=== PATIENT | female | born 1955 | race Hispanic/Latino ===

== ENCOUNTER 2016-03-26 22:18 | Emergency (ER) | payer OTHER ==
[~2016-03-26] VITALS: Ht 157.5 cm; Wt 67.6 kg
[~2016-03-26 22:18] MED LIST: ABILIFY 10 MG10 MG PO; ALBUTEROL 3 ML3 ML INH; AMOXIL 875 MG875 MG PO; BACTRIM DS TAB1 EACH PO; BENADRYL25 MG PO; CLONAZEPAM2 MG PO; IBUPROFEN600 MG PO; KLONOPIN 1MG TAB1 MG PO; MEDROL4 M2 PO; Nebulizer machine; PEPCID20 M1 PO; PREDNISONE 10MG10 M1 PO; PREDNISONE 20MG20 MG PO; PREDNISONE10 MG PO; PRISTIQ 50MG50 MG PO; PROVENTIL0.09 MG/A1 INH; ROBITUSSIN W/CO10 ML PO; SYMBICORT 80/4.1 PUF INH; TESSALON PERLE100 MG PO; TRAMADOL HCL50 M1 PO; TYLENOL #31 TAB PO; ZITHROMAX Z-PA250 M1 PO; ZOFRAN4 M1 PO
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
[2016-03-26] MEDS ORDERED: SYMBICORT 80-10.2 GM INH (23:47)
[2016-03-26] MEDS ORDERED: ALBUTEROL2.5 MG/3 M INH/SOL (23:47)
[2016-03-27 01:00] LABS: ABSOLUTE BASOPHIL COUNT 0 /CUMM (0.0-0.2); ABSOLUTE EOSINOPHIL COUNT 0.5 /CUMM (0.0-0.7); ABSOLUTE GRANULOCYTE CT 5.6 /CUMM (1.4-6.5); ABSOLUTE LYMPH COUNT 2.3 /CUMM (1.2-3.4); ABSOLUTE MONOCYTE COUNT 0.9 /CUMM (0.10-0.60); BASOPHIL % 0.5 % (0.0-2.0); EOSINOPHIL % 5.1 % (0-5); GRANULOCYTE % 60.4 % (42.2-75.2); HEMATOCRIT 42.3 % (37-47); MEAN CORPUSCULAR HGB CONC 34.1 G/DL (33.0-37.0); MEAN PLATELET VOLUME 8.9 FL (7.4-10.4); PLATELET COUNT 376 /CUMM (130-400); RBC DISTRIBUTION WIDTH 13.5 % (11.5-14.5); WHITE BLOOD CELL COUNT 9.3 /CUMM (4.8-10.8)
--- NOTE | 2016-03-27 01:04 | RADIOLOGY REPORT ---
EXAMINATION: XR PORTABLE CHEST CLINICAL INFORMATION: Pleuritic chest pain. COMPARISON: Chest x-ray 08/05/2015 TECHNIQUE: Portable view of the chest was obtained. FINDINGS: Low lung volumes. Mild basilar atelectasis. No focal consolidation, pleural effusion, or pneumothorax. Cardiac silhouette size is normal. Aorta is again noted to be tortuous. No acute osseous findings. IMPRESSION: Low lung volumes and mild bibasilar atelectasis.
--- NOTE | 2016-03-27 01:07 | RADIOLOGY REPORT ---
EXAMINATION: 3 views of the left shoulder CLINICAL INFORMATION: Tenderness over the left glenohumeral joint. COMPARISON: Left shoulder radiographs 05/19/2011 FINDINGS: No acute fractures. The bony articulations are maintained. The scapular Y view is limited secondary to patient positioning with the glenoid angulated anteriorly towards the humerus. No anteromedial displacement of the humeral head in relation to the glenoid to suggest dislocation on the remaining views. Appearance is stable in comparison to the prior shoulder radiographs. IMPRESSION: No acute osseous findings. Limited scapular Y view secondary to patient positioning.
[2016-03-27] MEDS ORDERED: KETOROLAC TROME10 M1 PO (05:51)
[2016-03-27 06:33] VITALS: BP 11/60
== END 2016-03-27 06:37 ==
LOC: ERH 22:18
PROVIDERS: Ophthalmology
DX: R07.89 Other chest pain (principal); I24.9 Acute ischemic heart disease, unspecified; M94.0 Chondrocostal junction syndrome [Tietze]
CPT/HCPCS: 73030-LT; 82436; 93005; 93010; J1885

== ENCOUNTER 2016-03-31 22:19 | Emergency (ER) | payer OTHER ==
[~2016-03-31] VITALS: Ht 165.1 cm; Wt 67.6 kg
[~2016-03-31 22:19] MED LIST changes: +ALBUTEROL2.5 MG/3 M INH/SOL; +KETOROLAC TROME10 M1 PO; +SYMBICORT 80-10.2 GM INH
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
[2016-03-31 22:30] VITALS: BP 112/65
[2016-03-31 22:55] LABS: ABSOLUTE BASOPHIL COUNT 0 /CUMM (0.0-0.2); ABSOLUTE EOSINOPHIL COUNT 0.5 /CUMM (0.0-0.7); ABSOLUTE GRANULOCYTE CT 5.6 /CUMM (1.4-6.5); ABSOLUTE LYMPH COUNT 2.6 /CUMM (1.2-3.4); ABSOLUTE MONOCYTE COUNT 0.9 /CUMM (0.10-0.60); BASOPHIL % 0.4 % (0.0-2.0); EOSINOPHIL % 4.9 % (0-5); GRANULOCYTE % 58.7 % (42.2-75.2); HEMATOCRIT 42.5 % (37-47); MEAN CORPUSCULAR HGB 29.6 PG (27.0-31.0); MEAN CORPUSCULAR HGB CONC 33.5 G/DL (33.0-37.0); MEAN CORPUSCULAR VOLUME 88.5 FL (81.0-99.0); MEAN PLATELET VOLUME 8.4 FL (7.4-10.4); PLATELET COUNT 377 /CUMM (130-400); RBC DISTRIBUTION WIDTH 13.7 % (11.5-14.5); WHITE BLOOD CELL COUNT 9.6 /CUMM (4.8-10.8)
--- NOTE | 2016-03-31 23:16 | RADIOLOGY REPORT ---
EXAMINATION: XR PORTABLE CHEST CLINICAL INFORMATION: Dyspnea. COMPARISON: Portable chest x-ray 03/27/2016. TECHNIQUE: Portable AP view of the chest was obtained. FINDINGS: The lungs are hypoinflated. There is minimal dependent bibasilar atelectasis. No focal airspace consolidation. No pleural effusions or pneumothoraces are identified. Cardiomediastinal contours are within normal limits. Soft tissues are unremarkable. No acute osseous abnormality is identified. IMPRESSION: Pulmonary hypoinflation and minimal dependent bibasilar atelectasis. No focal airspace consolidation to suggest infection.
[2016-03-31] MEDS ORDERED: PREDNISOLO15 MG/5 M4 PO (23:37)
[2016-03-31] MEDS ORDERED: VENTOLIN HFA18 GM INH (23:37)
== END 2016-03-31 23:41 ==
LOC: ERH 22:19
PROVIDERS: Pediatrics
DX: J98.01 Acute bronchospasm (principal); J70.5 Respiratory conditions due to smoke inhalation
CPT/HCPCS: 1263; 93005; 93010

== ENCOUNTER 2016-05-14 10:18 | Inpatient (IN) | payer OTHER ==
[~2016-05-14] VITALS: Ht 162.6 cm; Wt 67.6 kg
[~2016-05-14 10:18] MED LIST changes: +PREDNISOLO15 MG/5 M4 PO; +VENTOLIN HFA18 GM INH
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
--- NOTE | 2016-05-14 10:29 | NUR ---
ARIAN TO BEDSIDE TO EVAL
--- NOTE | 2016-05-14 10:46 | NUR ---
RT CALLED FOR NEB TX
--- NOTE | 2016-05-14 10:57 | NUR ---
RT TO BEDSIDE FOR TX, MEDICATED WITH PREDNISONE
--- NOTE | 2016-05-14 11:08 | NUR ---
LABS DRAW AND SENT, [facility] TX IN PROGRESS, PT ALSO REPORTING SMALL RED AREA OF PAIN AND SWELLING TO HER R BUTTOCK, APPEARS TO BE ABSCESS LIKE - WILL NOTIFY PA
[2016-05-14 11:13] LABS: ABSOLUTE BASOPHIL COUNT 0 /CUMM (0.0-0.2); ABSOLUTE EOSINOPHIL COUNT 0.5 /CUMM (0.0-0.7); ABSOLUTE GRANULOCYTE CT 7.4 /CUMM (1.4-6.5); ABSOLUTE LYMPH COUNT 1.1 /CUMM (1.2-3.4); ABSOLUTE MONOCYTE COUNT 0.9 /CUMM (0.10-0.60); BASOPHIL % 0.4 % (0.0-2.0); EOSINOPHIL % 5.5 % (0-5); GRANULOCYTE % 74.6 % (42.2-75.2); HEMATOCRIT 41.1 % (37-47); MEAN CORPUSCULAR HGB 30.3 PG (27.0-31.0); MEAN CORPUSCULAR HGB CONC 34.6 G/DL (33.0-37.0); MEAN CORPUSCULAR VOLUME 87.8 FL (81.0-99.0); MEAN PLATELET VOLUME 8.5 FL (7.4-10.4); PLATELET COUNT 345 /CUMM (130-400); RBC DISTRIBUTION WIDTH 12.9 % (11.5-14.5); RED BLOOD CELL CT 4.68 /CUMM (4.20-5.40)
--- NOTE | 2016-05-14 11:14 | RADIOLOGY REPORT ---
EXAMINATION: CHEST 1 VIEW CLINICAL INFORMATION: Shortness of breath, chest pain. COMPARISON: 03/31/2016. TECHNIQUE: An AP view of the chest is provided. FINDINGS: The cardiac silhouette is not enlarged. The mediastinal and hilar contours are unremarkable. There are neither pleural effusions nor pneumothoraces. There are no consolidations. The osseous structures are unremarkable. IMPRESSION: No evidence for acute disease.
--- NOTE | 2016-05-14 12:10 | NUR ---
PT CONTINUES TO WHEEZE, RT AT BEDSIDE FOR REPEAT LAB TX
--- NOTE | 2016-05-14 14:25 | NUR ---
PT ADMITTED TO ROOM 179-1
--- NOTE | 2016-05-14 14:47 | NUR ---
[facility] CALLED FOR TRANSPORT
[2016-05-14 16:04] VITALS: BP 100/60
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
--- NOTE | 2016-05-14 17:51 | Admission Certification ---
Admission Certification Certification Statement - As attending physician, I certify that at the time of - admission, based on clinical presentation, severity of - symptoms, need for further diagnostic testing and - therapeutic interventions, and risk of adverse outcomes - without in-hospital treatment, in my clinical assessment, - this patient requires an acute hospital stay for a minimum - of two nights or longer. I have also considered psychsocial - factors such as support system, advanced age, financial - issues, cognitive issues, and failed out-patient treatments, - past re-admission history, safety of patient, and lack of - compliance as applicable. Specific rationale supporting this admission is: The patient presents with significant dyspnea and cough- COPD/asthma exacerbation. Needs IV medrol, aerosol, close respiratory monitoring.
[2016-05-14 23:51] VITALS: BP 100/60
--- NOTE | 2016-05-15 05:35 | PN- Housestaff ---
GABRIELLE BHATIA 05/15/16 0534: Subjective Follow-up For: -AECOPD Subjective: Patient was comfortable this morning. Did not have any complaints. Vitals remained stable overnight. Remained afebrile. No shortness of breath, chest pain or palpitations. Review of Systems Constitutional: Reports: see HPI. Objective Last 24 Hrs of Vital Signs/I&O Vital Signs Date Time Temp Pulse Resp B/P Pulse O2 O2 Flow FiO2 Ox Delivery Rate 05/15 0000 Room Air 05/14 2351 98.1 100 18 100/60 93 Room Air 05/14 2254 Room Air Room Air 05/14 1604 97.8 100 20 100/60 94 Room Air 05/14 1416 98.6 102 15 102/74 100 Room Air 05/14 1210 95 05/14 1149 98.0 86 18 90/57 98 05/14 1100 97 05/14 1026 99 Room Air 05/14 1026 98.3 89 16 100/55 100 Room Air Intake & Output 05/15 0800 05/15 0000 05/14 1600 Intake Total 950 25 Output Total Balance 950 25 Intake, IV 600 Intake, Oral 350 25 Number 0 Bowel Movements Patient 149 lb Weight Physical Exam General Appearance: No Acute Distress Other Physical Findings: General Exam: AAOx3, No acute distress, Skin: No rashes, no breakdown HEENT: PERRLA, EOMI Neck: Supple, No JVD No cervical lymphadenopathy CVS: Reg Rate, Normal S1,S2, No MGR Resp: Decreased air entry bilaterally, rhonchi bilaterally. Abdomen: Soft, No tenderness, Normal Bowel Sounds Neuro: Normal Speech, Strength 5/5 b/l x 4 extremities, Sensation intact, CN III -XII NL, Reflexes 2+ Extremities: No cyanosis, pedal edema Current Medications: Current Medications Sig/Hortencia Start time Last Medication Dose Route Stop Time Status Admin Albuterol Sulfate 3 ML EVERY 4 HRS/AWAKE 05/15 1999 AC 05/14 INH 1928 Albuterol Sulfate 3 ML ONCE ONE 05/14 1215 DC 05/14 INH 05/14 1216 1209 Albuterol Sulfate 3 ML ONCE ONE 05/14 1215 DC 05/14 INH 05/14 1216 1209 Albuterol Sulfate 3 ML ONCE ONE 05/14 1215 DC 05/14 INH 05/14 1216 1209 Albuterol Sulfate 3 ML ONCE ONE 05/14 1030 DC 05/14 INH 05/14 1031 1059 Budesonide/ 2 PUF BID 05/14 2200 AC 05/14 Formoterol Fumarate INH 215 Clonazepam 1 MG BID 05/15 1000 AC PO 05/22 0959 Clonazepam 2 MG AT BEDTIME 05/14 2200 DC 05/14 PO 05/21 2159 2153 Enoxaparin Sodium 40 MG 1800 05/14 1800 AC 05/14 SC 2152 Ipratropium [place] 2.5 ML EVERY 4 HRS/AWAKE 05/14 2000 AC 05/14 INH 1928 Ipratropium [place] 2.5 ML ONCE ONE 05/14 1030 DC 05/14 INH 05/14 1031 1059 Magnesium Sulfate 1 GM Q2H 05/14 1345 DC 05/14 Dextrose/Water 100 ML IV 05/14 1744 1654 Methylprednisolone 40 MG Q8 05/14 2200 AC 05/14 IV 2153 Methylprednisolone 40 MG ONCE ONE 05/14 1345 DC 05/14 IV 05/14 1346 1442 Prednisone 0 .STK-MED ONE 05/14 1050 DC PO Prednisone 60 MG ONCE ONE 05/14 1030 DC 05/14 PO 05/14 1031 1057 Sodium Chloride 1,000 ML ONCE ONE 05/14 1430 DC 05/14 IV 05/14 2109 1426 Last 24 Hrs of Lab/Tereso Results Last 24 Hrs of Labs/Mics: Laboratory Tests 05/14/16 1104: Anion Gap 9, Estimated GFR > 60, BUN/Creatinine Ratio 20.0, Glucose 104 H, Calcium 9.8, Total Bilirubin 0.6, AST 20, ALT 18, Alkaline Phosphatase 137 H, Troponin I < 0.01, Total Protein 7.2, Albumin 4.3, Globulin 2.9, Albumin/ Globulin Ratio 1.5, CBC w Diff NO MAN DIFF REQ, RBC 4.68, MCV 87.8, MCH 30.3, RDW 12.9, MPV 8.5, Gran % 74.6, Lymphocytes % 10.8 L, Monocytes % 8.7, Eosinophils % 5.5 H, Basophils % 0.4, Absolute Granulocytes 7.4 H, Absolute Lymphocytes 1.1 L, Absolute Monocytes 0.9 H, Absolute Eosinophils 0.5, Absolute Basophils 0, PUBS MCHC 34.6 Assessment/Plan Assessment: Ms. Duff is a 61-year-old woman with a history of COPD (not on any home oxygen), current smoker, asthma who is being evaluated for cough, wheezing and chest tightness 3 days. Reports medication noncompliance. At the time of admission, vitals-temperature 98.3, pulse rate 89, respiration 16 , blood pressure 100/55, pulse ox 100 on room air. Lab findings indicated WBC 10.0. Hemoglobin 14.2, platelets 345, eosinophils 5.5% normal electrolyte- sodium 141, potassium 3.8, bicarbonate 28, normal renal function BUN 14, serum creatinine 0.7. Radiological findings-chest x-ray revealed no evidence of any acute disease. Differential diagnosis: #1 acute exacerbation of COPD #2 asthma Below is the problem list and plan: #1 shortness of breath-likely from acute exacerbation of COPD. Patient has been started on IV Solu-Medrol. Currently 40 mg every 8. Patient still symptomatic, and has clinical signs suggestive of severe airway inflammation, plan to continue 40 mg every 8. May change in the a.m. to twice a day dose. No azithromycin was added. Lower respiratory cultures have not been obtained. Patient has been started on budesonide/formoterol, ipratropium and albuterol. Discharge planning in the next 24 hours. #2 anxiety- patient to be continued on Klonopin at her home dose. Psychiatry evaluation. #3 DVT prophylaxis-Lovenox #4 pain pathway-Tylenol when necessary Problem List: 1. COPD exacerbation 2. Bronchospasm Pain Ratin Pain Location: Back Pain Goal: Pain 4 or less Pain Plan: Tylenol when necessary Tomorrow's Labs & Rationales: No labs necessary. Currently stable. DVT/Prophylaxis: pharmacological (Lovenox) Discharge Plan Discharge Disposition: home Stable for Discharge? No Anticipated Discharge (Day): tomorrow If Discharged Today/In 24 Hrs: enter [facility] discharge ord CRISTHIAN SUE MD 05/15/16 1127: Attending MD Review Statement Attending Statement Attending MD Statement: examined this patient, discuss w/resident/PA/BALL RACKER, agreed w/resident/PA/BALL RACKER, reviewed EMR data (avail) Attending Assessment/Plan: Will continue Solumedrol and nebulizer treatments for COPD exacerbation. Requiring 2L NC to maintain saturation, titrate down as tolerated. Continue home medications. Would recommend psychiatry consult as patient is very tearful and depressed. DVT PPx. Anticipated discharge tomorrow.
[2016-05-15 08:30] VITALS: BP 100/64; BP 152/80
--- NOTE | 2016-05-15 11:23 | PN- Student ---
Subjective Subjective: Following up for: COPD/Asthma Exacerbation I visited Ms. Duff this morning and she was sitting on her bed crying. The patient seems to be emotionally distressed for different reasons other than her current health status. She stated that "she feels alone and that none of her children wants to take care of her". While evaluating her she cried three times and in the meantime she was running short of breath. The patient admitted that she didn't had a good night sleep and estimates that only got 3 hours of sleep. Compared to yesterday she feels somewhat better but still isn't in optimal conditions. The patient confirmed the history that was taken yesterday during her admission and mentioned that she was not able to take her medications since she didn't had them available. The patient is bilingual (Bel[place]ian & Urdu), and most of the conversation was done in estonian. At the end she seemed more calmed and was willing to start on nasal canula to maintain her saturation in an appropriate level. The patient is in mild respiratory distress and emotional distress as well, which increases her anxiety level and henceforth her respiratory drive as well. She denies any current chest pain, dizziness, syncope, nausea, vomiting, constipation or diarrhea. Objective Objective: Current Medications Sig/Hortencia Start time Last Medication Dose Route Stop Time Status Admin Albuterol Sulfate 3 ML EVERY 4 HRS/AWAKE 05/15 1999 AC 05/15 INH 0819 Albuterol Sulfate 3 ML ONCE ONE 05/14 1215 DC 05/14 INH 05/14 1216 1209 Albuterol Sulfate 3 ML ONCE ONE 05/14 1215 DC 05/14 INH 05/14 1216 1209 Albuterol Sulfate 3 ML ONCE ONE 05/14 1215 DC 05/14 INH 05/14 1216 1209 Budesonide/ 2 PUF BID 05/14 220 AC 05/15 Formoterol Fumarate INH 1048 Clonazepam 1 MG BID 05/15 1000 AC 05/15 PO 05/22 0959 1048 Clonazepam 2 MG AT BEDTIME 05/14 2199 DC 05/14 PO 05/21 215 2153 Enoxaparin Sodium 40 MG 1800 05/14 1800 AC 05/14 SC 2152 Guaifenesin 600 MG Q12 05/15 1000 AC 05/15 PO 1048 Ipratropium [place] 2.5 ML EVERY 4 HRS/AWAKE 05/15 1999 AC 05/15 INH 0819 Magnesium Sulfate 1 GM Q2H 05/14 1345 DC 05/14 Dextrose/Water 100 ML IV 05/14 1744 1654 Methylprednisolone 40 MG Q8 05/14 2200 AC 05/15 IV 0552 Methylprednisolone 40 MG ONCE ONE 05/14 1345 DC 05/14 IV 05/14 1346 1442 Ondansetron HCl 4 MG ONCE ONE 05/15 0630 DC 05/15 IV 05/15 0631 0642 Sodium Chloride 1,000 ML ONCE ONE 05/14 1430 DC 05/14 IV 05/14 2109 1426 Vital Signs Date Time Temp Pulse Resp B/P Pulse O2 O2 Flow FiO2 Ox Delivery Rate 05/15 0842 95 Nasal 2.0L Cannula 05/15 0830 98.0 90 20 100/64 97 Room Air 05/15 0800 Nasal 2.0L Cannula 05/15 0000 Room Air 05/14 2351 98.1 100 18 100/60 93 Room Air 05/14 2254 Room Air Room Air 05/14 1604 97.8 100 20 100/60 94 Room Air 05/14 1416 98.6 102 15 102/74 100 Room Air 05/14 1210 95 05/14 1149 98.0 86 18 90/57 98 Intake & Output 05/15 1600 05/15 0800 05/15 0000 Intake Total 500 950 Output Total Balance 500 950 Intake, IV 400 600 Intake, Oral 100 350 Number 0 0 Bowel Movements Physical Examination: General: 61 y/o Female which is in mild respiratory distress and emotionally distressed as well. The patient is alert and oriented X3. Mouth: No purse lips on inspection Lungs: Bilateral diffuse ronchi; Minimal wheezes were appreciated CV: S1, S2 sounds were heard; no murmurs were heard. Lower Extremities: No signs of pedal edema or changes in temperature. Neurological: Normal Speech. Results Results: Laboratory Tests 05/14/16 1104: Anion Gap 9, Estimated GFR > 60, BUN/Creatinine Ratio 20.0, Glucose 104 H, Calcium 9.8, Total Bilirubin 0.6, AST 20, ALT 18, Alkaline Phosphatase 137 H, Troponin I < 0.01, Total Protein 7.2, Albumin 4.3, Globulin 2.9, Albumin/ Globulin Ratio 1.5, CBC w Diff NO MAN DIFF REQ, RBC 4.68, MCV 87.8, MCH 30.3, RDW 12.9, MPV 8.5, Gran % 74.6, Lymphocytes % 10.8 L, Monocytes % 8.7, Eosinophils % 5.5 H, Basophils % 0.4, Absolute Granulocytes 7.4 H, Absolute Lymphocytes 1.1 L, Absolute Monocytes 0.9 H, Absolute Eosinophils 0.5, Absolute Basophils 0, PUBS MCHC 34.6 Assessment/Plan Assessment: Ms. Duff is a 61 y/o [place] with a past medical history of COPD/Asthma, Seizures & Anxiety. The patient presented to the [facility] due to shortness of breath and chest tightness and was admitted to the General Medicine floor but currently is being held in the Telemetry floor. Upon admission her vital signs were 98.3 f, 89 BPM, 16 BrPM, 100/55 and was saturating 100% at room air. Chemistries & hematology laboratories were normal including Troponin levels (<0.01). Upon examining the patient she seemed to be distressed emotionally and respiratory; on auscultation ronchi was heard diffusely and minimal wheezing was also appreciated. CXR findings were unremarkable and didn't showed any signs of emphysematous, fibrotic/interstitial changes. DDx: #1) Asthma Exacerbation #2) COPD/Emphysema Exacerbation #3) Pulmonary Embolism #4) Demand Ischemia Based on the constellation of complaints, signs and symtpoms there is a possibility that the patient is having an Asthma exacerbation. Given the fact that the patient has a PMHx of Asthma, wasn't using her medications and potentially was exposed to cold temperatures, it can be possible that she underwent a degree of broncho-constriction and inflammation which lead her to be short of breath and "tight of chest", hence supporting this diagnosis. Since the CXR didn't show hyperinflation, the patient was having non-productive cough (R/O emphysema) and also had normal oxygen saturation levels (PE) it's unlikely that the other diagnoses are possible. Plan: Problem List & Plan: 1) Asthma Exacerbation & Shortness of Breath - Solumedrol IV 40mg q8 (to control degree of inflammation) - Albuterol INH 3.0mL PRN (to control flairs of shortness of breath) - Ipratropium INH 1.5mL PRN - 1.5 L/min Nasal Canula - Caution with anxiolytics due to respiratory drive suppresion - Pulmonology Consult 2) Anxiety - Psychiatry consult to assess anxiety episodes - Clonazepam PO 1mg BID 3) Normal Diet 4) DVT PPx - Lovenox SQ
[2016-05-15 15:22] VITALS: BP 102/64
[2016-05-15 23:33] VITALS: BP 104/68
--- NOTE | 2016-05-16 06:49 | PN- Student ---
Subjective Subjective: Following up for: COPD/Asthma Exacerbation I visited Ms. Duff this morning and she was sleeping in her bed comfortably. She was drowsy but stated that she slept well after the administration of "some sleeping pill" (Clonazepam). The patient seemed more relieved in terms of her emotional status and confirmed it when asked about it. During the day I'll reach again to corroborate the response. In terms of her respiratory status she feels better but not completely relieved and she complained of soar throat due to her non-productive cough. The patient is not in any type of distress. She denies any current chest pain, dizziness, syncope, nausea, vomiting, constipation or diarrhea. Objective Objective: Current Medications Sig/Hortencia Start time Last Medication Dose Route Stop Time Status Admin Acetaminophen 650 MG Q6P PRN 05/15 1745 AC PO Albuterol Sulfate 3 ML EVERY 4 HRS/AWAKE 05/15 1999 AC 05/15 INH 2024 Benzocaine/Menthol 1 REKHA Q2P PRN 05/15 183 AC 05/15 PO 2112 Budesonide/ 2 PUF BID 05/14 2199 AC 05/15 Formoterol Fumarate INH 2113 Clonazepam 1 MG .STK-MED ONE 05/15 1045 DC PO 05/15 1046 Clonazepam 1 MG BID 05/15 1000 AC 05/15 PO 05/22 0959 2114 Enoxaparin Sodium 40 MG 1800 05/14 1800 AC 05/15 SC 1708 Guaifenesin 10 ML .STK-MED ONE 05/15 1942 DC PO 05/15 1943 Guaifenesin 600 MG Q6-PRN PRN 05/15 1830 CAN PO Guaifenesin 600 MG Q12 05/15 1000 DC 05/15 PO 1048 Guaifenesin/Codeine 10 ML .STK-MED ONE 05/15 1943 DC Phosphate PO 05/15 1944 Guaifenesin/ 10 ML Q4P PRN 05/15 1830 AC 05/16 Dextromethorphan PO 0557 Ipratropium [place] 2.5 ML EVERY 4 HRS/AWAKE 05/15 1999 AC 05/15 INH 2023 Methylprednisolone 40 MG Q8 05/14 2199 AC 05/16 IV 0553 Ondansetron HCl 4 MG .STK-MED ONE 05/15 1658 DC IV 05/15 1659 Vital Signs Date Time Temp Pulse Resp B/P Pulse O2 O2 Flow FiO2 Ox Delivery Rate 05/16 0000 Nasal 2.0L Cannula 05/15 2333 98.0 90 20 104/68 97 Nasal Cannula 05/15 1630 98 Nasal 2.0L Cannula 05/15 1522 98.2 96 20 102/64 95 Nasal 2.0L Cannula 05/15 0842 95 Nasal 2.0L Cannula 05/15 0830 98.0 90 20 100/64 97 Room Air 05/15 0800 Nasal 2.0L Cannula Intake & Output 05/16 0800 05/16 0000 05/15 1600 Intake Total 240 720 716 Output Total Balance 240 720 716 Intake, IV 11 Intake, Oral 240 720 705 Physical Examination: General: 61 y/o Female without any signs of distress. The patient is alert and oriented X3 and today seemed to be more emotionally stable Mouth: No purse lips on inspection Lungs: Ronchi was heard in the Left Basilar area; Right Lung was clear to auscultation; Minimal wheezes were appreciated on the Left Basilar area CV: S1, S2 sounds were heard; no murmurs were heard Lower Extremities: No signs of pedal edema or changes in temperature Neurological: Normal Speech Results Results: Laboratory Tests 05/14/16 1104: Anion Gap 9, Estimated GFR > 60, BUN/Creatinine Ratio 20.0, Glucose 104 H, Calcium 9.8, Total Bilirubin 0.6, AST 20, ALT 18, Alkaline Phosphatase 137 H, Troponin I < 0.01, Total Protein 7.2, Albumin 4.3, Globulin 2.9, Albumin/ Globulin Ratio 1.5, CBC w Diff NO MAN DIFF REQ, RBC 4.68, MCV 87.8, MCH 30.3, RDW 12.9, MPV 8.5, Gran % 74.6, Lymphocytes % 10.8 L, Monocytes % 8.7, Eosinophils % 5.5 H, Basophils % 0.4, Absolute Granulocytes 7.4 H, Absolute Lymphocytes 1.1 L, Absolute Monocytes 0.9 H, Absolute Eosinophils 0.5, Absolute Basophils 0, PUBS MCHC 34.6 Assessment/Plan Assessment: Ms. Duff is a 61 y/o [place] with a past medical history of COPD/Asthma, Seizures & Anxiety. The patient presented to the [facility] due to shortness of breath and chest tightness and was admitted to the General Medicine floor but currently is being held in the Telemetry floor. Upon admission her vital signs were 98.3 f, 89 BPM, 16 BrPM, 100/55 and was saturating 100% at room air. Chemistries & hematology laboratories were normal including Troponin levels (<0.01). Upon examining the patient she seemed to be distressed emotionally and respiratory; on auscultation ronchi was heard diffusely and minimal wheezing was also appreciated. CXR findings were unremarkable and didn't showed any signs of emphysematous, fibrotic/interstitial changes. DDx: #1) Asthma Exacerbation #2) COPD/Emphysema Exacerbation #3) Pulmonary Embolism #4) Demand Ischemia Based on the constellation of complaints, signs and symtpoms there is a possibility that the patient is having an Asthma exacerbation. Given the fact that the patient has a PMHx of Asthma, wasn't using her medications and potentially was exposed to cold temperatures, it can be possible that she underwent a degree of broncho-constriction and inflammation which lead her to be short of breath and "tight of chest", hence supporting this diagnosis. Since the CXR didn't show hyperinflation, the patient was having non-productive cough (R/O emphysema) and also had normal oxygen saturation levels (PE) it's unlikely that the other diagnoses are possible. Plan: Problem List & Plan: Today the patient was feeling better when compared to yesterday. She mentioned that she walked to her bathroom with less respiratory complications than yesterday; nevertheless she doesn't feel optimal at this point. Respiratory auscultation demonstrated ronchi improvement on the R-Lung but the L-Lung still has some degree of ronchi which needs to be addressed prior to discharge. Ambulatory saturation measurement was performed and she was at 94-95% upon exertion and feeling well, although minimally lightheaded. 1) Asthma Exacerbation & Shortness of Breath - Solumedrol IV 40mg q8 (to control degree of inflammation) - Albuterol INH 3.0mL PRN (to control flairs of shortness of breath) - Ipratropium INH 1.5mL PRN - Continue 1.5 L/min Nasal Canula - Caution with anxiolytics due to respiratory drive suppresion - Monitor Pulse Ox after Respiratory Tx - Ambulatory Pulse Ox following Respiratory Tx - Goal: Oxygen Saturation of >=95% 2) Anxiety - Psychiatry consult to assess anxiety episodes - Clonazepam PO 1mg BID 3) Normal Diet 4) DVT PPx - Lovenox SQ
[2016-05-16 08:02] VITALS: BP 104/60
--- NOTE | 2016-05-16 08:26 | PN- Housestaff ---
GABRIELLE BHATIA 05/16/16 0825: Subjective Follow-up For: Acute exacerbation of COPD Complaints: no complaints Tele-Events Since Last Visit: General medicine hold Subjective: Patient was comfortable this morning. Stated that she feels improved compared to yesterday. She also has many social issues around finding a place to stay after a few weeks, which apparently makes her very anxious at this time. Appeared very tearful. Vitals were stable overnight. She was afebrile. Review of Systems Constitutional: Reports: see HPI. Objective Last 24 Hrs of Vital Signs/I&O Vital Signs Date Time Temp Pulse Resp B/P Pulse O2 O2 Flow FiO2 Ox Delivery Rate 05/16 0802 98.3 60 20 104/60 96 Nasal 2.0L Cannula 05/16 0753 98 Nasal 2.0L Cannula 05/16 0000 Nasal 2.0L Cannula 05/15 2333 98.0 90 20 104/68 97 Nasal Cannula 05/15 1630 98 Nasal 2.0L Cannula 05/15 1522 98.2 96 20 102/64 95 Nasal 2.0L Cannula 05/15 0842 95 Nasal 2.0L Cannula 05/15 0830 98.0 90 20 100/64 97 Room Air Intake & Output 05/16 1600 05/16 0800 05/16 0000 Intake Total 240 720 Output Total Balance 240 720 Intake, Oral 240 720 Physical Exam General Appearance: No Acute Distress Other Physical Findings: General Exam: AAOx3, No acute distress, Skin: No rashes, no breakdown HEENT: PERRLA, EOMI Neck: Supple, No JVD No cervical lymphadenopathy CVS: Reg Rate, Normal S1,S2, No MGR Resp: Decreased air entry bilaterally, rhonchi left greater than right. Abdomen: Soft, No tenderness, Normal Bowel Sounds Neuro: Normal Speech, Strength 5/5 b/l x 4 extremities, Sensation intact, CN III -XII NL, Reflexes 2+ Extremities: No cyanosis, pedal edema Current Medications: Current Medications Sig/Hortencia Start time Last Medication Dose Route Stop Time Status Admin Acetaminophen 650 MG Q6P PRN 05/15 1745 AC PO Albuterol Sulfate 3 ML EVERY 4 HRS/AWAKE 05/15 1999 AC 05/16 INH 0750 Benzocaine/Menthol 1 REKHA Q2P PRN 05/15 183 AC 05/15 PO 2113 Budesonide/ 2 PUF BID 05/14 2200 AC 05/15 Formoterol Fumarate INH 2114 Clonazepam 1 MG .STK-MED ONE 05/15 1045 DC PO 05/15 1046 Clonazepam 1 MG BID 05/15 1000 AC 05/15 PO 05/22 0959 2114 Enoxaparin Sodium 40 MG 1800 05/14 1800 AC 05/15 SC 1708 Guaifenesin 10 ML .STK-MED ONE 05/15 1942 DC PO 05/15 1943 Guaifenesin 600 MG Q6-PRN PRN 05/15 1830 CAN PO Guaifenesin 600 MG Q12 05/15 1000 DC 05/15 PO 1048 Guaifenesin/Codeine 10 ML .STK-MED ONE 05/15 194 DC Phosphate PO 05/15 194 Guaifenesin/ 10 ML Q4P PRN 05/15 1830 AC 05/16 Dextromethorphan PO 0557 Ipratropium [place] 2.5 ML EVERY 4 HRS/AWAKE 05/14 2000 AC 05/16 INH 0750 Methylprednisolone 40 MG BID 05/16 2199 AC IV Methylprednisolone 40 MG Q8 05/14 220 DC 05/16 IV 0553 Ondansetron HCl 4 MG .STK-MED ONE 05/15 1658 DC IV 05/15 1659 Assessment/Plan Assessment: Ms. Duff is a 61-year-old woman with a history of COPD (not on any home oxygen), current smoker, asthma who is being evaluated for cough, wheezing and chest tightness 3 days. Reports medication noncompliance. Radiological findings-chest x-ray revealed no evidence of any acute disease. Differential diagnosis: #1 acute exacerbation of COPD #2 asthma Below is the problem list and plan: #1 shortness of breath-likely from acute exacerbation of COPD. Patient still symptomatic, and has clinical signs suggestive of severe airway inflammation, plan to continue IV Solu-Medrol, but decrease the frequency to every 12 hours. No azithromycin was added. Lower respiratory cultures have not been obtained. Patient has been started on budesonide/formoterol, ipratropium and albuterol. Discharge planning in the next 24 hours. #2 anxiety- patient to be continued on Klonopin at her home dose. Psychiatry evaluation pending. #3 DVT prophylaxis-Lovenox #4 pain pathway-Tylenol when necessary Problem List: 1. COPD exacerbation Pain Ratin Pain Location: Back Pain Goal: Pain 4 or less Pain Plan: Tylenol when necessary Tomorrow's Labs & Rationales: No labs necessary. CRISTHIAN SUE MD 05/16/16 1115: Attending MD Review Statement Attending Statement Attending MD Statement: examined this patient, discuss w/resident/PA/FIN[employer]CIAL SALES ASSOCIATE, agreed w/resident/PA/FINANCIAL SALES ASSOCIATE, reviewed EMR data (avail) Attending Assessment/Plan: Will continue Solumedrol and nebulizer treatments for COPD exacerbation. Requiring 2L NC to maintain saturation, titrate down as tolerated. Taper Solumedrol to 40mg IV BID, with plan to switch to PO tomorrow. Continue home medications. Would recommend psychiatry consult as patient is very tearful and depressed. DVT PPx. Anticipated discharge tomorrow.
[2016-05-16] MEDS ORDERED: PREDNISONE10 M2 PO (08:52)
--- NOTE | 2016-05-16 08:56 | Patient Discharge Instructions ---
Discharge Instructions General Discharge Information You were seen/treated for: Acute exacerbation of COPD Watch for these problems: - chest pain, shortness of breath, fever. - abdominal pain, diarrhea Special Instructions: - Please see your PCP within one week of discharge. - Please take your medicaitons as prescribed. Acute Coronary Syndrome Inclusion Criteria At DC or during hospital stay patient has or had the following: ACS DIAGNOSIS No Discharge Core Measures Meds if any: Prescribed or Continued at Discharge Meds if any: NOT Prescribed or Continued at Discharge Congestive Heart Failure Inclusion Criteria At DC or during hospital stay patient has or had the following: CHF DIAGNOSIS No Discharge Core Measures Meds if any: Prescribed or Continued at Discharge Meds if any: NOT Prescribed or Continued at Discharge Cerebrovascular accident Inclusion Criteria At DC or during hospital stay patient has or had the following: CVA/TIA Diagnosis No Discharge Core Measures Meds if any: Prescribed or Continued at Discharge Meds if any: NOT Prescribed or Continued at Discharge Venous thromboembolism Inclusion Criteria VTE Diagnosis No VTE Type NONE VTE Confirmed by (Test) NONE Discharge Core Measures - Per Current guidelines, there needs to be overlap - treatment for the first 5 days of Warfarin therapy. - If discharged on Warfarin prior to 5 days of - overlap therapy, the patient will need to be - assessed for post discharge needs including - *Post discharge parental anticoagulation - *Warfarin and/or parental anticoagulation education - *Follow up date to check INR post discharge At least 5 days overlap therapy as Inpatient No Meds if any: Prescribed or Continued at Discharge Note: Overlap Therapy is Warfarin and Anticoagulant Meds if any: NOT Prescribed or Continued at Discharge
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
[2016-05-16 16:06] VITALS: BP 106/60; BP 182/90
[2016-05-17 00:13] VITALS: BP 100/60
--- NOTE | 2016-05-17 05:47 | PN- Housestaff ---
GABRIELLE BHATIA 05/17/16 0547: Subjective Follow-up For: - AECOPD - SOB Tele-Events Since Last Visit: gen med hold. Subjective: Pt was comfortable. She stated that she did not sleep well last night. She had increasing chills, which appeard like seizures. Vitals stable. No fever, chest pain or neurological symptoms. Pt to be follow up at [facility], for her psychiatric work up. She wishes to see Dr. Ames,as an outpatient PCP. Referral provided. Review of Systems Constitutional: Reports: see HPI. Objective Last 24 Hrs of Vital Signs/I&O Vital Signs Date Time Temp Pulse Resp B/P Pulse O2 O2 Flow FiO2 Ox Delivery Rate 05/17 0013 97.0 76 18 100/60 94 Nasal Cannula 05/17 0000 Nasal 2.0L Cannula 05/16 1645 94 Room Air 05/16 1606 97.2 79 18 106/60 96 05/16 0802 98.3 60 20 104/60 96 Nasal 2.0L Cannula 05/16 0800 96 Nasal 2.0L Cannula 05/16 0753 98 Nasal 2.0L Cannula Intake & Output 05/17 0800 05/17 0000 05/16 1600 Intake Total 240 Output Total 500 Balance -260 Intake, Oral 240 Output, Urine 500 Physical Exam General Appearance: No Acute Distress Skin: No Rashes, No Breakdown HEENT: PERRLA, EOMI Neck: No JVD, No thryomegaly Lymphatic: Cervical nl Cardiovascular: Normal S1, Normal S2 Lungs: Normal Air Movement, b/l wheezes Abdomen: Soft, No Tenderness Neurological: Normal Speech, Strength at 5/5 X4 Ext, Normal Tone, Sensation Intact Extremities: No Cyanosis, No Edema Vascular: Pulses Symmetrical Current Medications: Current Medications Sig/Hortencia Start time Last Medication Dose Route Stop Time Status Admin Acetaminophen 650 MG Q6P PRN 05/15 1745 AC PO Albuterol Sulfate 3 ML EVERY 4 HRS/AWAKE 05/15 1999 AC 05/16 INH 2114 Aripiprazole 10 MG DAILY 05/16 1611 AC PO Benzocaine/Menthol 1 REKHA Q2P PRN 05/15 1830 AC 05/15 PO 2113 Budesonide/ 2 PUF BID 05/14 2199 AC 05/16 Formoterol Fumarate INH 2112 Clonazepam 1 MG .STK-MED ONE 05/16 2109 DC PO 05/16 211 Clonazepam 1 MG .STK-MED ONE 05/16 0939 DC PO 05/16 0940 Clonazepam 1 MG BID 05/15 1000 AC 05/16 PO 05/22 0959 2113 Enoxaparin Sodium 40 MG 1800 05/14 1800 AC 05/16 SC 1827 Guaifenesin 10 ML .STK-MED ONE 05/16 1930 DC PO 05/16 1931 Guaifenesin/ 10 ML Q4P PRN 05/15 1830 AC 05/17 Dextromethorphan PO 0219 Ipratropium [place] 2.5 ML EVERY 4 HRS/AWAKE 05/15 1999 AC 05/16 INH 2115 Methylprednisolone 40 MG BID 05/16 2199 AC 05/16 IV 211 Methylprednisolone 40 MG Q8 05/14 2200 DC 05/16 IV 0553 Nicotine 21 MG DAILY 05/16 1610 AC 05/16 TOP 1826 Patient Medication 1 ED .STK-MED ONE 05/16 1416 DC Teaching ED 05/16 1417 Trazodone HCl 50 MG AT BEDTIME 05/16 2199 AC 05/16 PO 2112 Trazodone HCl 50 MG AT BEDTIME NEED.. 05/16 1615 AC PO Assessment/Plan Assessment: Ms. Duff is a 61-year-old woman with a history of COPD (not on any home oxygen), current smoker, asthma who is being evaluated for cough, wheezing and chest tightness 3 days. Reports medication noncompliance. Radiological findings-chest x-ray revealed no evidence of any acute disease. Differential diagnosis: #1 acute exacerbation of COPD #2 asthma Below is the problem list and plan: #1 shortness of breath-likely from acute exacerbation of COPD. Improved. Change solumedrol to po prednisone. No azithromycin was added. Lower respiratory cultures have not been obtained. Patient has been started on budesonide/ formoterol, ipratropium and albuterol. #2 anxiety- patient to be continued on Klonopin at her home dose. Pristiq ER(to be started as an outpatient due to unavailability), trazodone and abilify initiated. No further work up at this time. #3 DVT prophylaxis-Lovenox #4 pain pathway-Tylenol when necessary 5. Smoking cessation- informed her about a direct correlation between cigarette smoking and worsening COPD. Smoking cessation counseling done. Problem List: 1. Bronchospasm 2. COPD exacerbation Pain Ratin Pain Location: back Pain Goal: Pain 4 or less Pain Plan: tylenol Tomorrow's Labs & Rationales: no labs necessary. pt to be discharged. CRISTHIAN SUE MD 05/17/16 1025: Attending MD Review Statement Attending Statement Attending MD Statement: examined this patient, discuss w/resident/PA/LION TRAINER, agreed w/resident/PA/LION TRAINER, reviewed EMR data (avail) Attending Assessment/Plan: Initially presented with wheezing and dyspnea on minimal exertion, unable to take more than a few steps without becoming severely short of breath. Improved slowly with nebulizer treatments and Solumedrol. Required oxygen for 2 days due to hypoxia. Now saturating well on room air with ambulation with significant improvement in lung sounds and exercise tolerance. Stable for discharge home on Prednisone taper, continue home inhalers, follow up in COPD clinic and with behavioral care for depression.
--- NOTE | 2016-05-17 05:48 | Discharge Summary ---
Visit Information Visit Dates Admission Date: 05/14/16 Discharge Date: 05/17/16 Hospital Course Course Attending Physician: CRISTHIAN SUE MD Primary Care Physician: HUMBERTO ARNDT,[facility] Course: Ms. Duff is a 61-year-old woman with a history of COPD (not on any home oxygen), current smoker, asthma who is being evaluated for cough, wheezing and chest tightness 3 days. Reported medication noncompliance. At the time of admission, vitals-temperature 98.3, pulse rate 89, respiration 16 , blood pressure 100/55, pulse ox 100 on room air. Lab findings indicated WBC 10.0. Hemoglobin 14.2, platelets 345, eosinophils 5.5% normal electrolyte- sodium 141, potassium 3.8, bicarbonate 28, normal renal function BUN 14, serum creatinine 0.7. Radiological findings-chest x-ray revealed no evidence of any acute disease. Differential diagnosis: #1 acute exacerbation of COPD #2 asthma Below is the problem list and plan: #1 shortness of breath-likely from acute exacerbation of COPD. Patient was treated w/ IV Solu-Medrol which was tapered to po prednisone after improvement of symptoms. No azithromycin was added. Lower respiratory cultures have not been obtained. Patient was also treated w/ budesonide/formoterol, ipratropium and albuterol. Smoking cessation counseling was done. Oxygen saturation- ambulation on RA 94%. Did not need any supplemental oxygen at the time of discharge. #2 anxiety- patient to be continued on Klonopin at her home dose. She was restarted on home doses of desvenlafaxine, aripirazole, and trazodone. Encouraged her to follow up with care for further management. Reported many social issues about stay, medication compliance etc. Pt wanted to see Dr. Ames in the future, and arrangements made. Allergies: Coded Allergies: aspirin (Severe, RASH 03/26/16) Disposition Summary Disposition Principal Diagnosis: Acute exacerbation of COPD Additional Diagnosis: Anxiety Discharge Disposition: home or self care Discharge Instructions General Discharge Information Code Status: Full Code Patient's Diet: as tolerated, Patient's Activity: as tolerated Follow-Up Instructions/Appts: - To see PCP within one week of discharge. - To follow up with care/psychiatry within one week of discharge. Medications at Discharge Discharge Medications: Stop taking the following medications: Ketorolac Tromethamine (Ketorolac Tromethamine) 10 MG TABLET ORAL THREE TIMES DAILY as needed for chest wall pain Qty = 15 Prednisolone (Prednisolone) 15 MG/5 ML SOLUTION ORAL QDAY Qty = 50 Continue taking these medications: Clonazepam (Clonazepam) 2 MG TAB 1 Tablet ORAL TAKE AT BEDTIME as needed for ANXIETY Qty = 30 Comments: Last Taken:05/04/15 Time: 8 AM (1 MG GIVEN) Albuterol Sulfate (Albuterol Sulfate) 2.5 MG/3 ML (0.083 %) VIAL.NEB 1 Vial Inhale Solution EVERY 4 HOURS NEEDED as needed for COPD Qty = 225 Budesonide/Formoterol Fumarate (Symbicort 80-4.5 Mcg Inhaler) 80 MCG-4.5 MCG/ ACTUATION HFA.AER.AD 2 Puff Inhale through mouth TWICE DAILY Qty = 10 Comments: Last Taken:05/17/16 Time:8AM Albuterol Sulfate (Ventolin Hfa) 90 MCG HFA.AER.AD 2 Puff Inhale through mouth EVERY 4-6 HOURS NEEDED as needed for wheeze Qty = 1 Aripiprazole (Abilify) 10 MG TABLET 1 Tablet ORAL DAILY Qty = 30 Comments: Last Taken:05/17/16 Time:9AM Desvenlafaxine Succinate (Pristiq ER) 100 MG TAB.ER.24H 1 Tablet ORAL DAILY Qty = 30 Comments: NOT GIVEN Trazodone HCl (Trazodone HCl) 50 MG TABLET 1-2 Tablet ORAL Every night Qty = 60 Comments: NOT GIVEN Start taking the following new medications: Prednisone (Prednisone) 10 MG TABLET 1 Tablet ORAL DAILY Qty = 16 No Refills Instructions: Please take:: 4 tabs(40mg) on 05/18. 3 tabs(30mg) on 05/19,05/20 2 tabs(20mg) on 05/21,05/22 1 tabs(10mg) on 05/23,05/24. Please stop on 05/24. Copies To: NATANAEL PAUL MD
--- NOTE | 2016-05-17 06:50 | PN- Student ---
Subjective Subjective: Following up for: COPD/Asthma Exacerbation I visited the patient this morning and she was lying in her bed awake but drowsy. She does not recall how many hours of sleep she got but overall feels like she slept thanks to the Trazodone that was administer yesterday at bed time. She feels slight improvement but doesn't feel optimal yet although it was discussed with her that in terms of laboratories and clinical assessment, she is cleared for discharge today. The patient didn't had any major complaints other than the previous dry cough. Today she also complains of having "seizures" as which she describes as shaking episodes that involve loss of consciousness for an unknown amount of time, urinary incontinence, postictal weakness and no aura. The patient is not in any type of distress. She denies any current chest pain, dizziness, syncope, nausea, vomiting, constipation or diarrhea. Objective Objective: Current Medications Sig/Hortencia Start time Last Medication Dose Route Stop Time Status Admin Acetaminophen 650 MG Q6P PRN 05/15 1745 AC PO Albuterol Sulfate 3 ML EVERY 4 HRS/AWAKE 05/15 1999 AC 05/17 INH 0750 Aripiprazole 10 MG DAILY 05/16 1611 AC 05/17 PO 0933 Benzocaine/Menthol 1 REKHA Q2P PRN 05/15 1830 AC 05/15 PO 2113 Budesonide/ 2 PUF BID 05/14 2200 AC 05/17 Formoterol Fumarate INH 0933 Clonazepam 1 MG .STK-MED ONE 05/16 2110 DC PO 05/16 2111 Clonazepam 1 MG BID 05/15 1000 AC 05/17 PO 05/22 0959 0933 Enoxaparin Sodium 40 MG 1800 05/14 1800 AC 05/16 SC 1827 Guaifenesin 10 ML .STK-MED ONE 05/16 1930 DC PO 05/16 1931 Guaifenesin/ 10 ML Q4P PRN 05/15 1830 AC 05/17 Dextromethorphan PO 0219 Ipratropium [place] 2.5 ML EVERY 4 HRS/AWAKE 05/15 1999 AC 05/17 INH 0750 Methylprednisolone 40 MG BID 05/16 2200 DC 05/16 IV 2113 Nicotine 21 MG DAILY 05/16 1610 AC 05/17 TOP 0933 Patient Medication 1 ED .STK-MED ONE 05/16 1416 DC Teaching ED 05/16 1417 Prednisone 40 MG DAILY 05/17 1000 AC 05/17 PO 1022 Trazodone HCl 50 MG AT BEDTIME 05/16 2200 AC 05/16 PO 2113 Trazodone HCl 50 MG AT BEDTIME NEED.. 05/16 1615 AC PO Vital Signs Date Time Temp Pulse Resp B/P Pulse O2 O2 Flow FiO2 Ox Delivery Rate 05/17 0809 96.4 85 20 130/84 88 Nasal Cannula 05/17 0800 Nasal 2.0L Cannula 05/17 0752 98 Nasal 2.0L Cannula 05/17 0013 97.0 76 18 100/60 94 Nasal Cannula 05/17 0000 Nasal 2.0L Cannula 05/16 1645 94 Room Air 05/16 1606 97.2 79 18 106/60 96 Intake & Output 05/17 1600 05/17 0800 05/17 0000 Intake Total 120 240 Output Total 500 Balance 120 -260 Intake, Oral 120 240 Output, Urine 500 Physical Examination: General: 61 y/o Female without any signs of distress. The patient is alert and oriented X3 and today seemed to be more emotionally stable Mouth: No purse lips on inspection Lungs: Diffuse bilateral wheezes were heard CV: S1, S2 sounds were heard; no murmurs were heard Lower Extremities: Trace pitting edema (upon hard pressuring over the mid-tibial bone) Neurological: Normal Speech Results Results: Laboratory Tests 05/14/16 1104: Anion Gap 9, Estimated GFR > 60, BUN/Creatinine Ratio 20.0, Glucose 104 H, Calcium 9.8, Total Bilirubin 0.6, AST 20, ALT 18, Alkaline Phosphatase 137 H, Troponin I < 0.01, Total Protein 7.2, Albumin 4.3, Globulin 2.9, Albumin/ Globulin Ratio 1.5, CBC w Diff NO MAN DIFF REQ, RBC 4.68, MCV 87.8, MCH 30.3, RDW 12.9, MPV 8.5, Gran % 74.6, Lymphocytes % 10.8 L, Monocytes % 8.7, Eosinophils % 5.5 H, Basophils % 0.4, Absolute Granulocytes 7.4 H, Absolute Lymphocytes 1.1 L, Absolute Monocytes 0.9 H, Absolute Eosinophils 0.5, Absolute Basophils 0, PUBS MCHC 34.6 Assessment/Plan Assessment: Ms. Duff is a 61 y/o [place] with a past medical history of COPD/Asthma, Seizures & Anxiety. The patient presented to the [facility] due to shortness of breath and chest tightness and was admitted to the General Medicine floor but currently is being held in the Telemetry floor. Upon admission her vital signs were 98.3 f, 89 BPM, 16 BrPM, 100/55 and was saturating 100% at room air. Chemistries & hematology laboratories were normal including Troponin levels (<0.01). Upon examining the patient she seemed to be distressed emotionally and respiratory; on auscultation ronchi was heard diffusely and minimal wheezing was also appreciated. CXR findings were unremarkable and didn't showed any signs of emphysematous, fibrotic/interstitial changes. DDx: #1) Asthma Exacerbation #2) COPD/Emphysema Exacerbation #3) Pulmonary Embolism #4) Demand Ischemia Based on the constellation of complaints, signs and symtpoms there is a possibility that the patient is having an Asthma exacerbation. Given the fact that the patient has a PMHx of Asthma, wasn't using her medications and potentially was exposed to cold temperatures, it can be possible that she underwent a degree of broncho-constriction and inflammation which lead her to be short of breath and "tight of chest", hence supporting this diagnosis. Since the CXR didn't show hyperinflation, the patient was having non-productive cough (R/O emphysema) and also had normal oxygen saturation levels (PE) it's unlikely that the other diagnoses are possible. Plan: Daily Overview, Problem List & Plan: The patient today was feeling well but not improved, however the physical exam findings were consistent with improvement even though there's the presence of minimal wheezes. I recorded the Bedside Pulse Ox and it recorded a 96% on Nasal Canula (2 L/min). Later in the morning the patient was at RA and the recording yielded a 95%, which is also consistent with improvement. Regarding the patient' s "seizure" episode, this can be associated with a pseudoseizure since the patient doesn't want to go home; proper evaluation and neurological focused question were done and all prove the absence of any possible seizure and also the is a Psychiatric background history to take into consideration. [facility] was called this morning to assess previous history of seizures but the call wasn't answered; a voice message was left requesting a call back. Patient is clear for DC today in the afternoon. 1) Asthma Exacerbation & Shortness of Breath - Switch to Prednisone 40mg PO/day (to control degree of inflammation) - Albuterol INH 3.0mL PRN (to control flairs of shortness of breath) - Ipratropium INH 1.5mL PRN - Discontinue Nasal Canula - Goal: Oxygen Saturation of >=95% 2) Anxiety - Psychiatry consult was done; Adjust to documented recommendations - Clonazepam PO 1mg BID - Trazodone PRN for Insomnia 3) Normal Diet
[2016-05-17 08:09] VITALS: BP 130/84
[2016-05-17] MEDS ORDERED: TRAZODONE HCL50 M1 PO (09:49)
[2016-05-17] MEDS ORDERED: ABILIFY10 M1 PO (09:49)
[2016-05-17] MEDS ORDERED: PRISTIQ ER100 MG PO (09:49)
[2016-05-17] MEDS ORDERED: PREDNISONE10 M2 PO ×3 (10:22→10:29)
== END 2016-05-17 14:04 | DRG 191 ==
LOC: ENRESERVTM → ENRESERVDT → ERH 10:18 → ERHI 13:36 → 1NO 13:36 → ENPENDDIS 13:36 → 1NO 15:21
PROVIDERS: Physician Assistant Medical; ADMIT Internal Medicine
DX: J44.1 Chronic obstructive pulmonary disease with (acute) exacerbation (principal); J45.901 Unspecified asthma with (acute) exacerbation; F41.9 Anxiety disorder, unspecified; F17.210 Nicotine dependence, cigarettes, uncomplicated; F60.3 Borderline personality disorder; F31.9 Bipolar disorder, unspecified
CPT/HCPCS: 1NSP; 82436; 93005; 93010; 94644; 99233; J0401; J1650; J2405; J2920; J3490

== ENCOUNTER 2016-08-27 00:06 | Emergency (ER) | payer OTHER ==
[~2016-08-27] VITALS: Ht 160 cm; Wt 67.6 kg
[~2016-08-27 00:06] MED LIST changes: +ABILIFY10 M1 PO; +PREDNISONE10 M2 PO; +PRISTIQ ER100 MG PO; +TRAZODONE HCL50 M1 PO
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
[2016-08-27] MEDS ORDERED: VALTREX1000 MG PO (00:45)
[2016-08-27] MEDS ORDERED: MEDROL4 M2 PO (00:45)
[2016-08-27 01:12] VITALS: BP 118/60
== END 2016-08-27 01:14 ==
LOC: ERH 00:06
DX: B02.9 Zoster without complications (principal)
CPT/HCPCS: J3490

== ENCOUNTER 2016-09-04 21:19 | Emergency (ER) | payer OTHER ==
[~2016-09-04 21:19] MED LIST changes: +VALTREX1000 MG PO
[2016-09-04 21:31] VITALS: BP 95/78
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
== END 2016-09-04 22:32 | disposition left against medical advice (07) ==
LOC: ERH 21:19
DX: M25.561 Pain in right knee (principal); R07.89 Other chest pain

== ENCOUNTER 2017-04-15 21:21 | Emergency (ER) | payer OTHER ==
[~2017-04-15 21:21] MED LIST changes: +CLONAZEPAM1 M2 PO; -CLONAZEPAM2 MG PO; +REMERON30 M3 PO; +REXULTI2 M1 PO
[2017-04-15 22:09] LABS: ABSOLUTE BASOPHIL COUNT 0.1 /CUMM (0.0-0.2); ABSOLUTE EOSINOPHIL COUNT 0.5 /CUMM (0.0-0.7); ABSOLUTE LYMPH COUNT 2.2 /CUMM (1.2-3.4); ABSOLUTE MONOCYTE COUNT 1.1 /CUMM (0.10-0.60); BASOPHIL % 0.5 % (0.0-2.0); EOSINOPHIL % 4.8 % (0-5); GRANULOCYTE % 61.1 % (42.2-75.2); MEAN CORPUSCULAR HGB 30.3 PG (27.0-31.0); MEAN CORPUSCULAR HGB CONC 34.3 G/DL (33.0-37.0); MEAN CORPUSCULAR VOLUME 88.6 FL (81.0-99.0); MEAN PLATELET VOLUME 8.4 FL (7.4-10.4); PLATELET COUNT 377 /CUMM (130-400); RBC DISTRIBUTION WIDTH 13.1 % (11.5-14.5); RED BLOOD CELL CT 4.52 /CUMM (4.20-5.40); WHITE BLOOD CELL COUNT 9.9 /CUMM (4.8-10.8)
--- NOTE | 2017-04-15 22:54 | RADIOLOGY REPORT ---
EXAMINATION: CHEST 2 VIEWS CLINICAL INFORMATION: Chest pain. COMPARISON: 11/26/2016. TECHNIQUE: PA and lateral views of the chest were obtained. FINDINGS: The cardiac silhouette is not enlarged. The mediastinal and hilar contours are unremarkable. There are neither pleural effusions nor pneumothoraces. There are no consolidations. The lungs are hyperinflated. The osseous structures are unremarkable. IMPRESSION: No evidence for acute disease. Mild lung hyperinflation.
[2017-04-21] MEDS ORDERED: VENTOLIN HFA18 GM INH (20:09)
[2017-04-21] MEDS ORDERED: PREDNISONE50 M1 PO (20:09)
[2017-04-21] MEDS ORDERED: AUGMENTIN 875-1 EACH PO (20:09)
== END 2017-04-16 00:04 | disposition admitted as inpatient to this hospital (09) ==
LOC: ERH 21:21
PROVIDERS: Emergency Medicine
DX: R07.9 Chest pain, unspecified (principal)
CPT/HCPCS: 71046; 93005; 93010; 99281

== ENCOUNTER 2017-06-13 14:54 | Inpatient (IN) | payer OTHER ==
[~2017-06-13] VITALS: Ht 160 cm; Wt 74.0 kg
[~2017-06-13 14:54] MED LIST changes: +AUGMENTIN 875-1 EACH PO; +PREDNISONE50 M1 PO
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
[2017-06-13 16:13] LABS: ABSOLUTE BASOPHIL COUNT 0 /CUMM (0.0-0.2); ABSOLUTE EOSINOPHIL COUNT 0.5 /CUMM (0.0-0.7); ABSOLUTE GRANULOCYTE CT 7.8 /CUMM (1.4-6.5); ABSOLUTE LYMPH COUNT 1.7 /CUMM (1.2-3.4); ABSOLUTE MONOCYTE COUNT 0.9 /CUMM (0.10-0.60); BASOPHIL % 0.3 % (0.0-2.0); EOSINOPHIL % 4.2 % (0-5); GRANULOCYTE % 71.5 % (42.2-75.2); HEMATOCRIT 44.8 % (37-47); MEAN CORPUSCULAR HGB 29.2 PG (27.0-31.0); MEAN CORPUSCULAR VOLUME 88.7 FL (81.0-99.0); MEAN PLATELET VOLUME 8.3 FL (7.4-10.4); PLATELET COUNT 417 /CUMM (130-400); RBC DISTRIBUTION WIDTH 13.7 % (11.5-14.5); RED BLOOD CELL CT 5.05 /CUMM (4.20-5.40); WHITE BLOOD CELL COUNT 10.9 /CUMM (4.8-10.8)
[2017-06-13 16:19] LABS: PT 11.4 SEC (9.4-12.5); PTT 30 SEC (25-37)
--- NOTE | 2017-06-13 18:50 | CT SCAN REPORT ---
EXAMINATION: CT HEAD WITHOUT CONTRAST CT CERVICAL SPINE WITHOUT CONTRAST CLINICAL INFORMATION: Pain after fall. COMPARISON: None. TECHNIQUE: Contiguous axial imaging was performed from the skullbase to vertex without intravenous administration of contrast. Multidetector helical imaging was performed through the cervical spine. DLP: 942 mGy-cm. FINDINGS: HEAD: There is no evidence of acute intracranial hemorrhage or territorial infarction. No abnormal mass effect or midline shift is seen. Padgett to white matter differentiation is well preserved. No extra-axial fluid collections are identified. The ventricles are normal in size. Brain parenchymal attenuation is normal. The osseous structures and soft tissues are normal. The mastoid air cells are well aerated. There is mild to moderate mucosal thickening in the maxillary and ethmoid sinuses. CERVICAL SPINE: No acute fracture or dislocation is identified in the cervical spine. The disc spaces are maintained. No large disc protrusion is noted. There is moderate facet arthropathy at C2-C3 on the left side. The atlantoaxial articulation is normally maintained. The paraspinal soft tissues are normal. The lung apices are clear. There are age-indeterminate mild superior endplate depressed deformity is at the T2 and T3 levels without bony retropulsion. IMPRESSION: 1. No acute intracranial pathology. 2. No evidence of acute cervical spine traumatic injury. 3. Age-indeterminate mild superior endplate concave deformities at T2 and T3 which may be chronic. No bony retropulsion.
--- NOTE | 2017-06-13 19:51 | CT SCAN REPORT ---
EXAMINATION: CT ANGIOGRAM CHEST, ABDOMEN AND PELVIS CLINICAL INFORMATION: Epigastric pain. Abdominal pain. Syncope. COMPARISON: CT scan abdomen pelvis 07/11/2012 TECHNIQUE: Noncontrast axial images obtained through the chest. Multiple axial images were obtained through the chest abdomen and pelvis following the administration of 95 mL of Optiray 320 intravenous contrast. Coronal and sagittal reformatted images performed at CT scanner. No 3-D imaging. DLP: 1170.52 mGy-cm. FINDINGS: VASCULAR: The thoracic and the abdominal aorta is normal. There is no dissection. There is no atherosclerotic vascular wall calcifications of the aorta. There is normal enhancement of the major branch vessels at the thoracic aortic arch as well as in the abdomen and pelvis. The pulmonary arteries are well opacified. No evidence of central pulmonary embolism. CT CHEST: MEDIASTINUM: No mediastinal mass. No significant lymphadenopathy. There is no pericardial effusion. LUNGS: The lungs are clear. No nodule or infiltrate. Central bronchial airways open. FLUID: There is no pericardial effusion. There is no pleural effusion. AXILLA: No significant lymphadenopathy. CT SCAN ABDOMEN PELVIS: LIVER, GALLBLADDER, AND BILIARY TREE: The liver is normal in size, shape, and attenuation. No focal hepatic lesion or biliary ductal dilatation is present. The liver measures 18 cm superior inferior. The gallbladder is unremarkable with no evidence of radiopaque gallstones, gallbladder wall thickening, or obvious pericholecystic inflammatory changes. PANCREAS: Unremarkable. SPLEEN: Unremarkable. ADRENAL GLANDS: Unremarkable. KIDNEYS AND URETERS: The kidneys are normal in size, shape, and attenuation. No hydronephrosis, hydroureter, or calculi seen. No perinephric stranding. BLADDER: Unremarkable. GASTROINTESTINAL TRACT: The distal small bowel loops are mildly dilated but without bowel wall thickening or transition point. The dilatation extends up through the terminal ileum. There is some fecal-like material in the distal small bowel loops which can be seen with low transit. The proximal small bowel loops are nondistended. The colon is normal. There is a large volume of stool in the colon but no bowel wall thickening or edema or bowel obstruction. There are a few diverticula but no diverticulitis. The appendix is not seen. There is no inflammation of the mesentery. ABDOMINAL WALL: No significant hernia is appreciated. LYMPH NODES: Normal. PELVIC VISCERA: The uterus is anteverted. There is an enhancing vessels in the submucosa of the uterus with prominent left gonadal vein OSSEOUS STRUCTURES: There is slight compression of the central superior endplate of T2 and T3 and T10 and, T11. There is mild degenerative spondylosis of the thoracic spine with endplate spurring of the vertebrae. There is degenerative change of the lower lumbar spine with facet joint arthrosis at multiple levels. IMPRESSION: 1. Normal thoracic and abdominal aorta without aneurysm or dissection. Normal enhancement of the major branch vessels of the aorta. 2. No acute change of chest. 3. There is mild prominence of distal small bowel loops with air-fluid levels without transition point or bowel wall thickening or edema. Question early ileus rather than obstruction. There is fecal-like material in the lumen of the distal small bowel loops which can be seen with low transition.
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
--- NOTE | 2017-06-13 22:43 | RADIOLOGY REPORT ---
EXAMINATION: XRY-FEMUR, 2 VIEWS RIGHT, XRY-ANKLE 3 OR MORE VIEWS R CLINICAL INFORMATION: Mechanical fall. Pain and tenderness. COMPARISON: None. TECHNIQUE: 3 views the right ankle and 4 views the right femur FINDINGS: Right ankle: There is no evidence of fracture, subluxation, or joint effusion. Soft tissues are normal. Right femur: There is no fracture or dislocation. The soft tissues are normal. No joint effusion is seen. IMPRESSION: Exams negative for fracture or dislocation.
[2017-06-13 22:59] VITALS: BP 110/58
[2017-06-13] MEDS ORDERED: ALPRAZOLAM1 M2 PO (23:43)
--- NOTE | 2017-06-14 05:02 | Admission Certification ---
Admission Certification Certification Statement - As attending physician, I certify that at the time of - admission, based on clinical presentation, severity of - symptoms, need for further diagnostic testing and - therapeutic interventions, and risk of adverse outcomes - without in-hospital treatment, in my clinical assessment, - this patient requires an acute hospital stay for a minimum - of two nights or longer. I have also considered psychsocial - factors such as support system, advanced age, financial - issues, cognitive issues, and failed out-patient treatments, - past re-admission history, safety of patient, and lack of - compliance as applicable. Specific rationale supporting this admission is: Syncope and collapse, suspected ileus
[2017-06-14 06:30] VITALS: BP 118/60
--- NOTE | 2017-06-14 10:04 | RADIOLOGY REPORT ---
EXAMINATION: XR ABDOMEN MULTIPLE VIEWS CLINICAL INDICATION: Abdominal pain. Abnormal CT scan of the abdomen and pelvis. For follow-up. COMPARISON: CT of the abdomen and pelvis done on 06/13/2017. TECHNIQUE: 2 views of the abdomen. FINDINGS: There is no evidence of free air or obstruction. No abnormal calcifications are seen. Specifically, previous CT detected nonspecific prominent small bowel loops seen within the central and left mid abdomen is no longer reproduced. IMPRESSION: Previous CT detected nonspecific prominent small bowel loops within the central and left mid abdomen is no longer reproduced.
--- NOTE | 2017-06-14 10:13 | PN- Housestaff ---
[facility]: Subjective Follow-up For: Syncope Right knee pain Abdominal pain Subjective: No overnight events. Patient remained afebrileand examined this morning. She denied any chest pain, palpitation, short of breath, nausea, vomiting and dysuria. Patient reported having abdominal pain 10/10. Patient didn't pass stool for last couple of days but she is able to pass gas. Patient also reported having right knee pain since yesterday after fall. Review of Systems Constitutional: Denies: chills, fever. EENTM: Reports: no symptoms. Cardiovascular: Denies: chest pain, palpitations. Respiratory: Denies: cough, orthopnea, short of breath. Gastrointestinal: Reports: abdominal pain, constipation. Denies: diarrhea, nausea. Genitourinary: Reports: no symptoms. Musculoskeletal: Reports: see HPI. Neurological/Psychological: Reports: no symptoms. Objective Last 24 Hrs of Vital Signs/I&O Vital Signs Date Time Temp Pulse Resp B/P B/P Pulse O2 O2 Flow FiO2 Mean Ox Delivery Rate 06/14 0630 97.6 61 18 118/60 96 06/13 2259 97.8 65 18 110/58 97 Room Air 06/13 2234 98.0 63 18 102/58 97 Room Air Room Air 06/13 1916 98.4 84 18 105/53 97 Room Air Room Air 06/13 1807 98.3 82 18 111/55 99 Room Air 06/13 1648 96.1 06/13 1503 Room Air Room Air 06/13 1501 96.1 86 15 127/72 99 Room Air Room Air Intake & Output 06/14 1600 06/14 0800 06/14 0000 Intake Total 400 Output Total Balance 400 Intake, IV 400 Patient 157 lb Weight Weight Standing Scale Measurement Method Physical Exam General Appearance: Alert, Oriented X3, Cooperative Skin: No Rashes Skin Temp/Moisture Exam: Warm/Dry Sepsis Skin Exam (color): Normal for Ethnicity HEENT: Atraumatic, PERRLA, EOMI Neck: Supple Cardiovascular: Normal S1, Normal S2 Lungs: Clear to Auscultation Abdomen: Mild distension with deep tenderness at epigastrium Neurological: Normal Speech, Strength at 5/5 X4 Ext, Normal Tone Extremities: No Edema Assessment/Plan Assessment: 62 YO F with PMH significant for seizure disorder (EEGs negative here in 2011), anxiety, smoking, and COPD with previous admissions with COPD exacerbations most recently in 05/2016 presents for evaluation of a syncopal episode. We are following the patient on telemetry floor for the following reasons: Syncope: -Possibly vasovagal -EKGs and trops are Negative -Normal prolactin level -We will monitor her on telemetry floor for any arrhythmias that's causing her syncopal. -Cardiology consult -Echocardiogram -Orthostatic vitals -PT evaluation Abdominal pain: -Possible ileus -or fecal matter impaction -Nothing by mouth -Gentle IV hydration Right knee pain status post fall: -Pain medication -X-ray right knee History of COPD: -TRC nebulization as needed -Continue home medications History of smoking: -Smoking cessation counseling -Nicotine patch History of anxiety: -Continue mirtazapine -Continue Xanax DVT prophylaxis: Mechanical and s/c heparin CODE STATUS: Full code Problem List: 1. Syncope 2. Knee pain 3. Abdominal pain Pain Ratin Pain Location: abdominal and right knee Pain Goal: Remain pain free Pain Plan: pain pthway Tomorrow's Labs & Rationales: Alba Johnson MD 06/14/17 1756: Attending MD Review Statement Attending Statement Attending MD Statement: examined this patient, discuss w/resident/PA/ORTHOPEDIC DESIGNER, agreed w/resident/PA/ORTHOPEDIC DESIGNER, reviewed EMR data (avail) Attending Assessment/Plan: No change in clinical status, will follow neurology and cardiology, continue current management.
[2017-06-14 12:45] LABS: ABSOLUTE BASOPHIL COUNT 0 /CUMM (0.0-0.2); ABSOLUTE EOSINOPHIL COUNT 0.4 /CUMM (0.0-0.7); ABSOLUTE GRANULOCYTE CT 4.7 /CUMM (1.4-6.5); ABSOLUTE LYMPH COUNT 1.4 /CUMM (1.2-3.4); ABSOLUTE MONOCYTE COUNT 0.5 /CUMM (0.10-0.60); MEAN PLATELET VOLUME 8.5 FL (7.4-10.4)
[2017-06-14 12:49] LABS: BASOPHIL % 0.7 % (0.0-2.0); EOSINOPHIL % 5.6 % (0-5); GRANULOCYTE % 66.9 % (42.2-75.2); MEAN CORPUSCULAR HGB 30.1 PG (27.0-31.0); MEAN CORPUSCULAR HGB CONC 33.8 G/DL (33.0-37.0); PLATELET COUNT 344 /CUMM (130-400); RBC DISTRIBUTION WIDTH 13.8 % (11.5-14.5); RED BLOOD CELL CT 4.36 /CUMM (4.20-5.40)
[2017-06-14 12:50] LABS: HEMATOCRIT 38.8 % (37-47)
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
[2017-06-14 14:30] VITALS: BP 92/58
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
[2017-06-14 19:26] VITALS: BP 94/58
[2017-06-14 22:16] VITALS: BP 142/76
--- NOTE | 2017-06-14 23:11 | RADIOLOGY REPORT ---
EXAMINATION: XR KNEE, RIGHT CLINICAL INFORMATION: Pain in right knee. Mild swelling status post fall COMPARISON: 07/30/2015 TECHNIQUE: Four views of the right knee. FINDINGS: No fracture or subluxation. Compartmental joint spaces are maintained with mild tricompartmental marginal osteophytes present. Enthesophyte formation at the superior pole of the patella. Small suprapatellar joint effusion. Mild anterior soft tissue swelling. IMPRESSION: No acute fracture or malalignment. Mild tricompartmental degenerative changes. Small joint effusion.
[2017-06-15 06:45] VITALS: BP 116/60
--- NOTE | 2017-06-15 08:33 | PN- Housestaff ---
Subjective Follow-up For: Syncope Right knee pain Abdominal pain Tele-Events Since Last Visit: Normal sinus rhythm, HR 60s-80s Subjective: Patient was seen and examined at bedside. She is resting calmly. She had no acute events overnight. This morning when she attempted to go to the restroom she became dizzy, did not suffer a fall. She was later able to stand and ambulate to the restroom with no problems. She denies any chest pain, shortness breath, nausea, vomiting, fever, chills. Review of Systems Constitutional: Reports: no symptoms. EENTM: Reports: no symptoms. Cardiovascular: Reports: no symptoms. Respiratory: Reports: no symptoms. Gastrointestinal: Reports: no symptoms. Genitourinary: Reports: no symptoms. Musculoskeletal: Reports: no symptoms. Neurological/Psychological: Reports: see HPI. Objective Last 24 Hrs of Vital Signs/I&O Vital Signs Date Time Temp Pulse Resp B/P B/P Pulse O2 O2 Flow FiO2 Mean Ox Delivery Rate 06/15 0645 98.5 70 20 116/60 93 06/14 2216 98.8 76 20 142/76 95 06/14 1926 97.9 69 18 94/58 95 06/14 1430 98.3 70 20 92/58 94 Room Air Intake & Output 06/15 1600 06/15 0800 06/15 0000 Intake Total 200 200 Output Total 425 Balance 200 -225 Intake, Oral 200 200 Output, Urine 425 Patient 163 lb Weight Physical Exam General Appearance: Alert, Oriented X3, Cooperative, No Acute Distress Skin Temp/Moisture Exam: Warm/Dry Cardiovascular: Regular Rate, Normal S1, Normal S2 Lungs: Clear to Auscultation, Normal Air Movement Abdomen: Normal Bowel Sounds, Soft, No Tenderness Neurological: Normal Gait, Normal Speech, Strength at 5/5 X4 Ext, Sensation Intact, Cranial Nerves 3-12 NL Extremities: No Clubbing, No Cyanosis, No Edema Current Medications: Current Medications Sig/Hortencia Start time Last Medication Dose Route Stop Time Status Admin Acetaminophen 650 MG .STK-MED ONE 06/14 1909 DC PO 06/14 1910 Acetaminophen 650 MG .STK-MED ONE 06/14 0850 DC PO 06/14 0851 Acetaminophen 650 MG Q6P PRN 06/13 2200 AC 06/14 PO 1910 Albuterol Sulfate 2 PUF Q4-6 PRN PRN 06/13 2345 AC INH Alprazolam 1 MG BID PRN 06/13 2345 AC 06/14 PO 06/20 2344 2222 Dextrose/Sodium 1,000 ML .[id number] 06/13 220 DC 06/14 Chloride IV 1535 Enoxaparin Sodium 40 MG DAILY 06/14 0900 AC 06/15 SC 0820 Ibuprofen 600 MG Q6P PRN 06/13 2200 AC 06/14 PO 0306 Mirtazapine 30 MG QPM PRN 06/13 2345 AC PO Polyethylene Glycol 17 GM DAILY 06/14 1255 AC 06/15 PO 0820 Potassium Chloride 40 MEQ ONCE ONE 06/14 181 DC 06/14 PO 06/14 181 1911 Last 24 Hrs of Lab/Tereso Results Last 24 Hrs of Labs/Mics: Laboratory Tests 06/15/17 0630: Anion Gap 10, Estimated GFR > 60, BUN/Creatinine Ratio 22.9, Hemoglobin A1c Pending, Triglycerides 116, Cholesterol 170, LDL Cholesterol, Calc 97, HDL Cholesterol 50, Cholesterol/HDL Ratio 3 06/14/17 1900: Troponin I < 0.01 06/14/17 1210: Anion Gap 11, Estimated GFR > 60, BUN/Creatinine Ratio 20.0, Magnesium 2.0, Troponin I < 0.01, CBC w Diff NO MAN DIFF REQ, RBC 4.36, MCV 89.0, MCH 30.1, MCHC 33.8, RDW 13.8, MPV 8.5, Gran % 66.9, Lymphocytes % 19.6 L, Monocytes % 7.2, Eosinophils % 5.6 H, Basophils % 0.7, Absolute Granulocytes 4.7, Absolute Lymphocytes 1.4, Absolute Monocytes 0.5, Absolute Eosinophils 0.4, Absolute Basophils 0 Orders ECHO Findings: Left Ventricle Normal size left ventricle. Normal left ventricular wall thickness. Normal left ventricular wall motion. Normal left ventricular ejection fraction visually estimated at 65%. Abnormal relaxation filling pattern of the left ventricle for age (stage 1 diastolic dysfunction). Right Ventricle Normal right ventricular size and function. Right Atrium Normal right atrial size. Left Atrium Normal left atrial size. Possible patent foramen ovale. Mitral Valve Mildly calcified mitral valve annulus. Mitral valve mildly thickened. Trace mitral regurgitation. Aortic Valve Trileaflet aortic valve. Mild aortic sclerosis. No aortic valve stenosis. Moderate aortic regurgitation. Tricuspid Valve Structurally normal tricuspid valve. Trace tricuspid regurgitation. Unable to estimate the right ventricular systolic pressure. Pulmonic Valve Not well visualized. Trace pulmonic regurgitation. Pericardium No pericardial effusion. Great Vessels Normal size aortic root. CONCLUSIONS Normal size left ventricle. Normal left ventricular wall thickness. Normal left ventricular wall motion. Normal left ventricular ejection fraction visually estimated at 65%. Abnormal relaxation filling pattern of the left ventricle for age (stage 1 diastolic dysfunction). Normal right ventricular size and function. Normal atrial size. Possible patent foramen ovale. Trace mitral regurgitation. Moderate aortic regurgitation. Trace tricuspid regurgitation. Trace pulmonic regurgitation. Assessment/Plan Assessment: 62 YO F with PMH significant for seizure disorder (EEGs negative here in 2011), anxiety, smoking, and COPD with previous admissions with COPD exacerbations most recently in 05/2016 presents for evaluation of a syncopal episode. We are following the patient on telemetry floor for the following reasons: Syncope: -Possibly vasovagal -EKGs and trops are Negative -Normal prolactin level -Referred to cardiology for outpatient stress test -Echocardiogram showed normal ejection fraction, see above for rest of report -Orthostatic vitals were negative -Patient will follow up with neurology, she is not short and not to drive -Patient is stable for discharge Abdominal pain, resolved -Diet was advanced yesterday, repeat x-ray showed no obstruction Right knee pain status post fall: -Knee x-ray showed no acute osseous abnormalities -Continue adequate pain management History of COPD: -TRC nebulization as needed -Continue home medications History of smoking: -Smoking cessation counseling -Nicotine patch History of anxiety: -Continue mirtazapine -Continue Xanax DVT prophylaxis: Mechanical and s/c heparin CODE STATUS: Full code Problem List: 1. Syncope Pain Ratin Pain Location: back, knee Pain Goal: Pain 4 or less Pain Plan: pain pathway Tomorrow's Labs & Rationales: none
--- NOTE | 2017-06-15 10:44 | ECHOCARDIOGRAM REPORT ---
LUEK ORELLANA Age: 62 : 1955 Gender: F Exam Date: 06/14/2017 14:24 Exam Location: [place] Ht (in): 63 Wt (lb): 157 BSA: 1.80 BP: 110 / 58 Ordering Physician: Malini Lara MD Referring Physician: Pardeep Young MD Technologist: Caleb Sharma [facility] Room Number: [id number] Indications: PRESYNCOPE/SYNCOPE Rhythm: Sinus Technical Quality: Fair FINDINGS Left Ventricle Normal size left ventricle. Normal left ventricular wall thickness. Normal left ventricular wall motion. Normal left ventricular ejection fraction visually estimated at 65%. Abnormal relaxation filling pattern of the left ventricle for age (stage 1 diastolic dysfunction). Right Ventricle Normal right ventricular size and function. Right Atrium Normal right atrial size. Left Atrium Normal left atrial size. Possible patent foramen ovale. Mitral Valve Mildly calcified mitral valve annulus. Mitral valve mildly thickened. Trace mitral regurgitation. Aortic Valve Trileaflet aortic valve. Mild aortic sclerosis. No aortic valve stenosis. Moderate aortic regurgitation. Tricuspid Valve Structurally normal tricuspid valve. Trace tricuspid regurgitation. Unable to estimate the right ventricular systolic pressure. Pulmonic Valve Not well visualized. Trace pulmonic regurgitation. Pericardium No pericardial effusion. Great Vessels Normal size aortic root. CONCLUSIONS Normal size left ventricle. Normal left ventricular wall thickness. Normal left ventricular wall motion. Normal left ventricular ejection fraction visually estimated at 65%. Abnormal relaxation filling pattern of the left ventricle for age (stage 1 diastolic dysfunction). Normal right ventricular size and function. Normal atrial size. Possible patent foramen ovale. Trace mitral regurgitation. Moderate aortic regurgitation. Trace tricuspid regurgitation. Trace pulmonic regurgitation. Pardeep Young M.D. (Electronically Signed) Final Date: 15 June 2017 10:43 MEASUREMENTS (Male / Female) Normal Values 2D ECHO LV Diastolic Diameter PLAX 4.8 cm 4.2 - 5.9 / 3.9 - 5.3 cm LV Systolic Diameter PLAX 3.0 cm 2.1 - 4.0 cm LV Fractional Shortening PLAX 37.5 % 25 - 46 % LV Ejection Fraction 2D Teich 67.4 % IVS Diastolic Thickness 0.8 cm LVPW Diastolic Thickness 0.8 cm LV Relative Wall Thickness 0.3 RV Internal Dim ED PLAX 2.6 cm 1.9 - 3.8 cm LVOT Diameter 2.3 cm Aortic Root Diameter 3.4 cm LA Systolic Diameter LX 2.9 cm 3.0 - 4.0 / 2.7 - 3.8 cm LA Volume 45.0 cm 18 - 58 / 22 - 52 cm Ascending Aorta Diameter 3.1 cm DOPPLER AV Peak Velocity 125.0 cm/s AV Peak Gradient 6.3 mmHg AV Mean Velocity 93.7 cm/s AV Mean Gradient 4.0 mmHg AV Velocity Time Integral 24.7 cm AI Deceleration Knott 319.5 cm/s AI Peak Velocity 433.0 cm/s AI Pressure Half Time 399.5 ms AI Peak Gradient 75.0 mmHg LVOT Peak Velocity 84.6 cm/s LVOT Peak Gradient 2.9 mmHg LVOT Mean Velocity 64.1 cm/s LVOT Mean Gradient 2.0 mmHg LVOT Velocity Time Integral 18.2 cm LVOT Stroke Volume 75.6 cm AV Area Cont Eq vti 3.1 cm AV Area Cont Eq pk 2.8 cm MV Peak Velocity 116.0 cm/s MV Peak Gradient 5.4 mmHg MV Mean Velocity 85.7 cm/s MV Mean Gradient 3.0 mmHg Mitral E Point Velocity 94.9 cm/s Mitral A Point Velocity 111.0 cm/s Mitral E to A Ratio 0.9 MV PHT Velocity 118.0 cm/s MV Deceleration Knott 696.0 cm/s MV Pressure Half Time 50.9 ms MV Area PHT 4.3 cm MV Deceleration Time 257.0 ms TV Peak E Velocity 65.6 cm/s TV Peak A Velocity 51.5 cm/s TV E to A Ratio 1.3 PV Peak Velocity 103.0 cm/s PV Peak Gradient 4.2 mmHg PV Mean Velocity 74.3 cm/s PV Mean Gradient 2.0 mmHg PV Velocity Time Integral 21.1 cm LV E' Lateral Velocity 9.1 cm/s Mitral E to LV E' Lateral Ratio 10.5 LV E' Septal Velocity 5.5 cm/s Mitral E to LV E' Septal Ratio 17.4
--- NOTE | 2017-06-15 13:32 | Patient Discharge Instructions ---
Discharge Instructions General Discharge Information You were seen/treated for: Syncope and collapse Special Instructions: Please follow-up with your primary care doctor after discharge. Please follow up with a water restoration technician after discharge for outpatient cardiac monitoring. Please follow-up with a neurologist after discharge for EEG as an outpatient study. Please don't drive her car until being evaluated by the neurologist in outpatient clinic. Diet Continue normal diet: Yes Activity Full Activity/No Limits: Yes Acute Coronary Syndrome Inclusion Criteria At DC or during hospital stay patient has or had the following: ACS DIAGNOSIS No Discharge Core Measures Meds if any: Prescribed or Continued at Discharge Meds if any: NOT Prescribed or Continued at Discharge Congestive Heart Failure Inclusion Criteria At DC or during hospital stay patient has or had the following: CHF DIAGNOSIS No Discharge Core Measures Meds if any: Prescribed or Continued at Discharge Meds if any: NOT Prescribed or Continued at Discharge Cerebrovascular accident Inclusion Criteria At DC or during hospital stay patient has or had the following: CVA/TIA Diagnosis No Discharge Core Measures Meds if any: Prescribed or Continued at Discharge Meds if any: NOT Prescribed or Continued at Discharge Venous thromboembolism Inclusion Criteria VTE Diagnosis No VTE Type NONE VTE Confirmed by (Test) NONE Discharge Core Measures - Per Current guidelines, there needs to be overlap - treatment for the first 5 days of Warfarin therapy. - If discharged on Warfarin prior to 5 days of - overlap therapy, the patient will need to be - assessed for post discharge needs including - *Post discharge parental anticoagulation - *Warfarin and/or parental anticoagulation education - *Follow up date to check INR post discharge At least 5 days overlap therapy as Inpatient No Meds if any: Prescribed or Continued at Discharge Note: Overlap Therapy is Warfarin and Anticoagulant Meds if any: NOT Prescribed or Continued at Discharge
--- NOTE | 2017-06-16 06:19 | Discharge Summary ---
Visit Information Visit Dates Admission Date: 06/13/17 Discharge Date: 06/15/17 Hospital Course Course Attending Physician: Lexi Osborn MD Primary Care Physician: Beverly ARNDT,Beverly Hospital Course: 62 YO F with PMH significant for seizure disorder (EEGs negative here in 2011), anxiety, smoking, and COPD with previous admissions with COPD exacerbations most recently in 05/2016 presents for evaluation of a syncopal episode. ED course: Vitals: Temperature 96.1, pulse 86, respiratory rate 15, blood pressure 127/72, oxygen saturation 99% on room air. Labs: WBC count 10.9, hemoglobin 14.8, hematocrit 44.8, platelet count 217, sodium 143, potassium 4.7, BUN 14, creatinine 0.6, glucose 100, BUNs/creatinine ratio 23.3, anion gap 15, AST 24, ALT 26, alkaline phosphatase 154, troponin less than 0.01 Syncope: Probably vasovagal syncope. Patient orthostatic vitals remained negative. Her trops and EKGs remain negative for any ischemic cardiac injury. Her prolactin remained within normal limits to rule out seizure activity. Cardiology consult was obtained and recommendations were followed. Her echocardiogram showed ejection fraction more than 65% with stage I diastolic failure. Cardiology also recommended cardiac stress test that possibly will be possibly done as outpatient. Neurology consult was obtained and recommended to do EEG as outpatient. Neurology also recommended not to drive for 3 months. Neurology mentioned that there is no need to start anti-epileptic medication at this point. Patient CT scan head on admission remained negative for any intracranial pathology. As patient has history of fall her x-rays remain negative for any fracture. Patient was instructed to follow neurology within 1 week for further recommendations and tests in future to rule out any seizure activity. Abdominal pain: Patient was admitted with complain of abdominal pain. CT scan abdomen pelvis was done that ruled out any perforation of viscus but it showed mild dilated small intestine bowel loops fecal matter in the lumen. Probably patient has impaction of fecal matter. Her lipase was in normal limits. Patient was given laxatives and her abdominal pain was resolved by its own. Right knee pain status post fall: Patient was complaining of right knee pain after the fall with mild swelling. Patient's pain was controlled with pain medications and x-ray was done that showed degenerative changes and small joint effusion. History of COPD: TRC nebulization was done as needed and her home medications were continued. History of smoking: Smoking cessation counseling was done and patient was offered nicotine patch. History of anxiety: Her home medications were continued including mirtazapine and Xanax. DVT prophylaxis: Mechanical and s/c heparin CODE STATUS: Full code Allergies: Coded Allergies: aspirin (Severe, RASH 10/17/16) Pertinent Lab Results: CT scan head on 06/13/2017: IMPRESSION: 1. No acute intracranial pathology. 2. No evidence of acute cervical spine traumatic injury. 3. Age-indeterminate mild superior endplate concave deformities at T2 and T3 which may be chronic. No bony retropulsion. Ankle x-ray on 06/13/17: IMPRESSION: Exams negative for fracture or dislocation. Femur x-ray on 06/13/2017: IMPRESSION: Exams negative for fracture or dislocation. Cervical spine CT scan on 06/13/2017: IMPRESSION: 1. No acute intracranial pathology. 2. No evidence of acute cervical spine traumatic injury. 3. Age-indeterminate mild superior endplate concave deformities at T2 and T3 which may be chronic. No bony retropulsion. Abdominal/pelvic CTA on 06/13/2017: IMPRESSION: 1. Normal thoracic and abdominal aorta without aneurysm or dissection. Normal enhancement of the major branch vessels of the aorta. 2. No acute change of chest. 3. There is mild prominence of distal small bowel loops with air-fluid levels without transition point or bowel wall thickening or edema. Question early ileus rather than obstruction. There is fecal-like material in the lumen of the distal small bowel loops which can be seen with low transition. Chest CTA on 06/13/2017: IMPRESSION: 1. Normal thoracic and abdominal aorta without aneurysm or dissection. Normal enhancement of the major branch vessels of the aorta. 2. No acute change of chest. 3. There is mild prominence of distal small bowel loops with air-fluid levels without transition point or bowel wall thickening or edema. Question early ileus rather than obstruction. There is fecal-like material in the lumen of the distal small bowel loops which can be seen with low transition. Knee x-ray on 06/14/2017: IMPRESSION: No acute fracture or malalignment. Mild tricompartmental degenerative changes. Small joint effusion. Abdominal x-ray on 06/14/2017: IMPRESSION: Previous CT detected nonspecific prominent small bowel loops within the central and left mid abdomen is no longer reproduced. Echocardiogram on 06/15/2017: CONCLUSIONS Normal size left ventricle. Normal left ventricular wall thickness. Normal left ventricular wall motion. Normal left ventricular ejection fraction visually estimated at 65%. Abnormal relaxation filling pattern of the left ventricle for age (stage 1 diastolic dysfunction). Normal right ventricular size and function. Normal atrial size. Possible patent foramen ovale. Trace mitral regurgitation. Moderate aortic regurgitation. Trace tricuspid regurgitation. Trace pulmonic regurgitation. WBC count 7.0, hemoglobin 13.1, hematocrit 38.8, platelet count 344, sodium 141, potassium 4.5, BUN 16, creatinine 0.7, HbA1c 5.3, magnesium 2.0, troponin less than 0.01, less than 0.01, less than 0.01, lipase 60, prolactin 6.4 Disposition Summary Disposition Principal Diagnosis: Vasovagal syncope Abdominal pain possibly due to fecal impaction and constipation Right knee pain after the fall Additional Diagnosis: History of COPD History of anxiety Discharge Disposition: home or self care Discharge Instructions General Discharge Information Code Status: Full Code Patient's Diet: Regular diet Patient's Activity: Self-limited Follow-Up Instructions/Appts: Follow up with her primary care physician in one week. Follow-up with cardiology in 1 week for outpatient cardiac stress test. Follow-up with neurology in 1 week for outpatient EEG test. Medications at Discharge Discharge Medications: Continue taking these medications: Mirtazapine (Remeron) 30 MG TABLET 1 Tablet ORAL Every night as needed for SLEEP Qty = 30 Comments: NOT GIVEN THIS ADMISSION Albuterol Sulfate (Ventolin Hfa) 90 MCG HFA.AER.AD 2 Puff Inhale through mouth EVERY 4-6 HOURS NEEDED as needed for BRONCHITIS Qty = 1 Comments: NOT GIVEN THIS ADMISSION Alprazolam (Alprazolam) 1 MG TABLET 1 Tablet ORAL 2 x Daily as needed as needed for ANXIETY Comments: Last Taken:06/14/17 Time:10P.M Copies To: Beverly ARNDT,Beverly; Kasey ARNDT,Carlos Enrique; Hector ARNDT,Pardeep Treviño
== END 2017-06-15 14:34 | DRG 312 ==
LOC: ERH 14:54 → 1NO 21:39 → ERHI 21:39 → ENRESERV 22:09 → ENTRNSPT 22:30 → EDTRNSPTSTS 22:32 → EDTRNSPT 22:36 → CMPTRNSPT 22:51 → 1NO 22:51
PROVIDERS: Internal Medicine Interventional Cardiology; Physician Assistant; Student in an Organized Health Care Education/Training Program
DX: R55 Syncope and collapse (principal); F17.200 Nicotine dependence, unspecified, uncomplicated; F41.9 Anxiety disorder, unspecified; G40.909 Epilepsy, unspecified, not intractable, without status epilepticus; J44.9 Chronic obstructive pulmonary disease, unspecified; M25.561 Pain in right knee; K56.41 Fecal impaction; K59.00 Constipation, unspecified; W18.30XA Fall on same level, unspecified, initial encounter; Y92.481 Parking lot as the place of occurrence of the external cause; Z88.6 Allergy status to analgesic agent
CPT/HCPCS: 1NSP; 36592; 73552; 73562-RT; 73610-RT; 74021; 74174; 80307; 81001; 82436; 93005; 93010; 93306; 97116-GO; 97161-GP; J0131; J1650; J1885; J3490; J7042

== ENCOUNTER 2017-06-19 16:09 | Emergency (ER) | payer OTHER ==
[~2017-06-19 16:09] MED LIST changes: +ALPRAZOLAM1 M2 PO
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
[2017-06-19 17:03] LABS: ABSOLUTE BASOPHIL COUNT 0 /CUMM (0.0-0.2); ABSOLUTE EOSINOPHIL COUNT 0.5 /CUMM (0.0-0.7); ABSOLUTE GRANULOCYTE CT 4.2 /CUMM (1.4-6.5); ABSOLUTE LYMPH COUNT 1.7 /CUMM (1.2-3.4); ABSOLUTE MONOCYTE COUNT 0.8 /CUMM (0.10-0.60); BASOPHIL % 0.6 % (0.0-2.0); EOSINOPHIL % 6.4 % (0-5); GRANULOCYTE % 58.7 % (42.2-75.2); HEMATOCRIT 42.5 % (37-47); MEAN CORPUSCULAR HGB CONC 33.8 G/DL (33.0-37.0); MEAN CORPUSCULAR VOLUME 88.8 FL (81.0-99.0); MEAN PLATELET VOLUME 8.2 FL (7.4-10.4); PLATELET COUNT 394 /CUMM (130-400); RBC DISTRIBUTION WIDTH 13.6 % (11.5-14.5); RED BLOOD CELL CT 4.79 /CUMM (4.20-5.40); WHITE BLOOD CELL COUNT 7.2 /CUMM (4.8-10.8)
--- NOTE | 2017-06-19 17:42 | RADIOLOGY REPORT ---
EXAMINATION: XR PORTABLE CHEST CLINICAL INFORMATION: Altered mental status. Concern for aspiration. COMPARISON: Chest x-ray 04/15/2017 TECHNIQUE: Portable frontal view of the chest was obtained. 5:05 PM FINDINGS: Low inspiratory effort. There is no acute change of chest. No infiltrate. No pulmonary vascular congestion or pleural effusion. The cardiac and mediastinal contours are normal. The heart size is normal. IMPRESSION: Unremarkable examination.
[2017-06-20 10:10] VITALS: BP 110/66
== END 2017-06-20 10:18 ==
LOC: ERH 16:09
PROVIDERS: Physician Assistant
DX: F13.10 Sedative, hypnotic or anxiolytic abuse, uncomplicated (principal); F32.9 Major depressive disorder, single episode, unspecified
CPT/HCPCS: 71045; 80307; 93005; 93010; 96374; G0480; J2310

== ENCOUNTER 2017-06-29 15:33 | Observation (INO) | payer OTHER ==
[~2017-06-29] VITALS: Ht 160 cm; Wt 66.4 kg
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
[2017-06-29 16:32] LABS: ABSOLUTE BASOPHIL COUNT 0 /CUMM (0.0-0.2); ABSOLUTE EOSINOPHIL COUNT 0.3 /CUMM (0.0-0.7); ABSOLUTE GRANULOCYTE CT 9.9 /CUMM (1.4-6.5); ABSOLUTE LYMPH COUNT 1.5 /CUMM (1.2-3.4); BASOPHIL % 0.3 % (0.0-2.0); EOSINOPHIL % 2.6 % (0-5); GRANULOCYTE % 77.6 % (42.2-75.2); HEMATOCRIT 35.7 % (37-47); MEAN CORPUSCULAR HGB 30.1 PG (27.0-31.0); MEAN CORPUSCULAR HGB CONC 34.4 G/DL (33.0-37.0); MEAN CORPUSCULAR VOLUME 87.6 FL (81.0-99.0); MEAN PLATELET VOLUME 8.8 FL (7.4-10.4); PLATELET COUNT 392 /CUMM (130-400); RBC DISTRIBUTION WIDTH 12.9 % (11.5-14.5); RED BLOOD CELL CT 4.08 /CUMM (4.20-5.40); WHITE BLOOD CELL COUNT 12.7 /CUMM (4.8-10.8)
--- NOTE | 2017-06-29 17:36 | RADIOLOGY REPORT ---
EXAMINATION: XR CHEST CLINICAL INFORMATION: Congestion, cough, dyspnea. COMPARISON: Chest radiograph 06/19/2017. TECHNIQUE: 2 views of the chest were obtained. FINDINGS: The lungs are clear. No pleural effusion. Cardiomediastinal silhouette and pulmonary vasculature are within normal limits. No acute osseous finding. IMPRESSION: No acute cardiopulmonary disease.
[2017-06-29] MEDS ORDERED: IBUPROFEN600 M1 PO (18:05)
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
[2017-06-29 21:26] VITALS: BP 128/78
[2017-06-30 06:19] VITALS: BP 98/56
--- NOTE | 2017-06-30 08:14 | PN- Housestaff ---
[place] ARNDT,Frank 06/30/17 0814: Subjective Follow-up For: pleuritic chest pain cough Tele-Events Since Last Visit: sinus rhythm, no events Subjective: persistent cough intermittently productive Review of Systems Constitutional: Reports: see HPI. Objective Last 24 Hrs of Vital Signs/I&O Vital Signs Date Time Temp Pulse Resp B/P B/P Pulse O2 O2 Flow FiO2 Mean Ox Delivery Rate 06/30 0844 95 Room Air 06/30 0800 Room Air 06/30 0619 97.7 67 20 98/56 96 Room Air 06/30 0000 Room Air 06/29 2332 Room Air 06/29 2126 98.4 84 20 128/78 94 06/29 2033 98.5 82 19 109/59 96 Room Air 06/29 1938 98.6 85 20 104/57 95 Room Air 06/29 1632 92 06/29 1542 99.2 06/29 1541 83 22 107/58 97 Room Air Intake & Output 06/30 1600 06/30 0800 06/30 0000 Intake Total 525 Output Total 300 Balance 225 Intake, IV 525 Output, Urine 300 Patient 66.423 kg Weight Physical Exam General Appearance: Alert, Oriented X3, Cooperative, No Acute Distress Cardiovascular: Regular Rate, Normal S1, Normal S2, No Murmurs Lungs: minimal expiratory wheeze Abdomen: Normal Bowel Sounds, Soft, No Tenderness, No Masses Extremities: No Clubbing, No Cyanosis, No Edema, Normal Pulses Current Medications: Current Medications Sig/Hortencia Start time Last Medication Dose Route Stop Time Status Admin Acetaminophen 650 MG Q6P PRN 06/29 2044 AC PO Albuterol Sulfate 3 ML BID 06/30 0900 AC 06/30 INH 0834 Albuterol Sulfate 2 PUF Q4-6 PRN PRN 06/29 2044 AC INH Albuterol Sulfate 3 ML ONCE ONE 06/29 1615 DC 06/29 INH 06/29 1616 1632 Alprazolam 0.5 MG BID PRN 06/30 0415 AC PO 07/07 0414 Azithromycin 500 MG DAILY@1900 06/30 1900 AC Sodium Chloride 250 ML IV Azithromycin 500 MG ONCE ONE 06/29 1800 DC 06/29 Sodium Chloride 250 ML IV 06/29 1859 1920 Enoxaparin Sodium 40 MG DAILY 06/30 09 AC 06/30 SC 0832 Guaifenesin/Codeine 10 ML Q6P PRN 06/29 2044 AC 06/30 Phosphate PO 0010 Hydrocodone Bitart/ 1 TAB Q6P PRN 06/29 2044 AC Acetaminophen PO Ipratropium [place] 2.5 ML ONCE ONE 06/29 1615 DC 06/29 INH 06/29 1616 1632 Methylprednisolone 40 MG Q8 06/29 2199 AC 06/30 IV 0624 Methylprednisolone 0 .STK-MED ONE 06/29 1834 DC .ROUTE Methylprednisolone 125 MG ONCE ONE 06/29 1800 DC 06/29 IV 06/29 1801 1840 Mirtazapine 30 MG QPM PRN 06/29 2199 AC PO Nicotine 14 MG DAILY 06/30 0900 AC 06/30 TOP 0831 Oxycodone/ 2 TAB Q8P PRN 06/29 2044 DC Acetaminophen PO Sodium Chloride 1,000 ML Q13H 06/29 2129 DC 06/30 IV 06/30 1029 0011 Last 24 Hrs of Lab/Tereso Results Last 24 Hrs of Labs/Mics: Laboratory Tests 06/30/17 0713: Anion Gap 13, Estimated GFR > 60, BUN/Creatinine Ratio 28.0 H, Phosphorus 3.7, Magnesium 2.1, TSH 0.228 L, Free T4 1.19, CBC w Diff MAN DIFF ORDERED, RBC 3.84 L, MCV 87.9, MCH 30.8, MCHC 35.0, RDW 13.3, MPV 9.2, Gran % 94.5 H, Lymphocytes % 4.8 L, Monocytes % 0.7 L, Eosinophils % 0, Basophils % 0, Absolute Granulocytes 12.1 H, Segmented Neutrophils 89 H, Band Neutrophils 1, Absolute Lymphocytes 0.6 L, Lymphocytes 9 L, Monocytes 1 L, Absolute Monocytes 0.1, Absolute Eosinophils 0, Absolute Basophils 0, Platelet Estimate VERIFIED BY SMEAR, Normocytic RBCs VERIFIED, Normochromic RBCs VERIFIED 06/30/170: Troponin I < 0.01 06/29/172204: Troponin I < 0.01 06/29/172021: Urine Color Cancelled, Urine Clarity Cancelled, Urine pH Cancelled, Ur Specific [place] Cancelled, Urine Protein Cancelled, Urine Ketones Cancelled, Urine Nitrite Cancelled, Urine Bilirubin Cancelled, Urine Urobilinogen Cancelled, Ur Leukocyte Esterase Cancelled, Ur Microscopic Cancelled, Urine Hemoglobin Cancelled, Urine Glucose Cancelled 06/29/17 1614: Anion Gap 10, Estimated GFR > 60, BUN/Creatinine Ratio 21.4, Glucose 100 H, Lactic Acid 0.9, Calcium 9.2, Total Bilirubin 0.4, AST 33, ALT 34, Alkaline Phosphatase 134 H, Troponin I < 0.01, Total Protein 7.1, Albumin 4.1, Globulin 3.0, Albumin/Globulin Ratio 1.4, CBC w Diff NO MAN DIFF REQ, RBC 4.08 L, MCV 87.6, MCH 30.1, MCHC 34.4, RDW 12.9, MPV 8.8, Gran % 77.6 H, Lymphocytes % 11.7 L, Monocytes % 7.8, Eosinophils % 2.6, Basophils % 0.3, Absolute Granulocytes 9.9 H, Absolute Lymphocytes 1.5, Absolute Monocytes 1.0 H, Absolute Eosinophils 0.3, Absolute Basophils 0 Microbiology 06/30 2039 URINE ROUT: Legionella Antigen - CAN Cancelled: SPECIMEN NOT RECEIVED IN LABORATORY 06/30 2039 URINE ROUT: Streptococcus pneumoniae Antigen (M - CAN Cancelled: SPECIMEN NOT RECEIVED IN LABORATORY 06/30 2039 LOWER RESP: Respiratory Culture - CAN Cancelled: SPECIMEN NOT RECEIVED IN LABORATORY 06/30 2039 LOWER RESP: Gram Stain - CAN Cancelled: SPECIMEN NOT RECEIVED IN LABORATORY 06/29 191 BLOOD: Blood Culture - RES 06/29 190 BLOOD: Blood Culture - RES 06/29 1614 NASOPHARYN: Influenza Virus A & B Rapid Smear - COMP Assessment/Plan Assessment: 62 year old female with past medical history of COPD, smoker (2ppd), anxiety, and seizures is under observation for cough related to bronchitis and evaluation of non specific EKG changes. COPD exacerbation likely secondary to bronchitis Continue azithromycin 500 mg No infiltrate on chest x-ray No fevers, mild leukocytosis No supplemental oxygen requirement Currently on IV solumedrol, can discharge on prednisone 40mg x 5 days TRC evaluation Robitussin for cough Counseled on smoking cessation Abnormal EKG changes Pleuritic chest pain, no events on telemetry EKG changes showed T-wave inversions in V1 to V2, not present on repeat EKGs Troponins negative Stable for discharge pending cardiology recommndations Outpatient stress test Echo LVEF > 65% with stage I diastolic dysfunction History of Seizures Outpatient neurology follow up, . Heart healthy diet DVT ppx-Lovenox Full Code Stable for discharge pending cardiology evaluation Problem List: 1. Acute electrocardiogram changes 2. Dyspnea 3. COPD exacerbation Pain Ratin Pain Location: n/a Pain Goal: Pain 4 or less Pain Plan: prn Tomorrow's Labs & Rationales: none, discharge Alba Grace MD 06/30/17 1044: Attending MD Review Statement Attending Statement Attending MD Statement: examined this patient, discuss w/resident/PA/SLAB STRIPPER, agreed w/resident/PA/SLAB STRIPPER, reviewed EMR data (avail) Attending Assessment/Plan: 62F brought in as observation for acute bronchitis with reactive airway disease, found incidentally to have T-wave inversions on EKG in leads v1 and v2, no cardiac symptoms. Today she feels well, still coughing, no cardiac complaints. 1. Acute bronchitis 2. Reactive airway disease 3. Acute EKG changes Plan - Prednisone 40mg x 5 days - Albuterol PRN - Cardiology consult - Continue home medications - DVT PPx - Anticipated discharge later today pending cardiology recommendations
[2017-06-30 08:28] LABS: ABSOLUTE BASOPHIL COUNT 0 /CUMM (0.0-0.2); ABSOLUTE EOSINOPHIL COUNT 0 /CUMM (0.0-0.7); ABSOLUTE GRANULOCYTE CT 12.1 /CUMM (1.4-6.5); ABSOLUTE LYMPH COUNT 0.6 /CUMM (1.2-3.4); ABSOLUTE MONOCYTE COUNT 0.1 /CUMM (0.10-0.60); BASOPHIL % 0 % (0.0-2.0); EOSINOPHIL % 0 % (0-5); GRANULOCYTE % 94.5 % (42.2-75.2); HEMATOCRIT 33.7 % (37-47); MEAN CORPUSCULAR HGB 30.8 PG (27.0-31.0); MEAN CORPUSCULAR VOLUME 87.9 FL (81.0-99.0); MEAN PLATELET VOLUME 9.2 FL (7.4-10.4); PLATELET COUNT 362 /CUMM (130-400); RBC DISTRIBUTION WIDTH 13.3 % (11.5-14.5); RED BLOOD CELL CT 3.84 /CUMM (4.20-5.40); WHITE BLOOD CELL COUNT 12.8 /CUMM (4.8-10.8)
[2017-06-30] MEDS ORDERED: AZITHROMYCIN250 M1 PO ×2 (09:37→14:10)
[2017-06-30] MEDS ORDERED: PREDNISONE20 M1 PO ×2 (09:37→14:10)
[2017-06-30] MEDS ORDERED: ROBITUSSIN COU237 M1 PO ×2 (10:39→14:10)
--- NOTE | 2017-06-30 14:12 | Patient Discharge Instructions ---
Discharge Instructions General Discharge Information You were seen/treated for: bronchitis chest pain Special Instructions: Your chest pain is likely related to coughing and not from a heart attack. You should see a senior dynamics crm developer as an outpatient to be evaluated for coronary artery disease with a stress test. Take your antibiotics, steroids, and cough medication. Stop smoking. Also follow up with your neurologist for an EEG and seizure evaluation from previous admission. Acute Coronary Syndrome Inclusion Criteria At DC or during hospital stay patient has or had the following: ACS DIAGNOSIS No Discharge Core Measures Meds if any: Prescribed or Continued at Discharge Meds if any: NOT Prescribed or Continued at Discharge Congestive Heart Failure Inclusion Criteria At DC or during hospital stay patient has or had the following: CHF DIAGNOSIS No Discharge Core Measures Meds if any: Prescribed or Continued at Discharge Meds if any: NOT Prescribed or Continued at Discharge Cerebrovascular accident Inclusion Criteria At DC or during hospital stay patient has or had the following: CVA/TIA Diagnosis No Discharge Core Measures Meds if any: Prescribed or Continued at Discharge Meds if any: NOT Prescribed or Continued at Discharge Venous thromboembolism Inclusion Criteria VTE Diagnosis No VTE Type NONE VTE Confirmed by (Test) NONE Discharge Core Measures - Per Current guidelines, there needs to be overlap - treatment for the first 5 days of Warfarin therapy. - If discharged on Warfarin prior to 5 days of - overlap therapy, the patient will need to be - assessed for post discharge needs including - *Post discharge parental anticoagulation - *Warfarin and/or parental anticoagulation education - *Follow up date to check INR post discharge At least 5 days overlap therapy as Inpatient No Meds if any: Prescribed or Continued at Discharge Note: Overlap Therapy is Warfarin and Anticoagulant Meds if any: NOT Prescribed or Continued at Discharge
[2017-10-24] MEDS ORDERED: KEPPRA500 M1 PO (22:50)
[2017-10-24] MEDS ORDERED: DICYCLOMINE HCL10 M1 PO (22:51)
[2017-10-24] MEDS ORDERED: ONDANSETRON ODT8 M1 SL (22:51)
[2017-10-24] MEDS ORDERED: PANTOPRAZOLE SO40 M1 PO (22:52)
[2017-10-25] MEDS ORDERED: IBUPROFEN600 M1 PO (04:33)
== END 2017-06-30 14:40 ==
LOC: ERH 15:33 → ERHI 18:49 → ENRESERV 19:44 → ENTRNSPT 20:33 → EDTRNSPTSTS 20:39 → 1NO 21:02 → CMPTRNSPT 21:21 → 1NO 06-30 07:56 → ENTRNSPT 06-30 13:55 → EDTRNSPT 06-30 14:27 → EDTRNSPTSTS 06-30 14:27 → 1NO 06-30 14:40 → CMPTRNSPT 06-30 14:51
PROVIDERS: Internal Medicine Hematology & Oncology; Physician Assistant
DX: J44.1 Chronic obstructive pulmonary disease with (acute) exacerbation (principal); F17.200 Nicotine dependence, unspecified, uncomplicated; F41.9 Anxiety disorder, unspecified; R56.9 Unspecified convulsions; J20.9 Acute bronchitis, unspecified; D72.829 Elevated white blood cell count, unspecified; J44.0 Chronic obstructive pulmonary disease with (acute) lower respiratory infection; Z79.52 Long term (current) use of systemic steroids; R07.81 Pleurodynia
CPT/HCPCS: 1263; 6020; 36592; 71046; 80307; 82436; 87040; 87070; 87449; 87450; 87804; 87804-59; 93005; 93010; 96372; 96374; 96375; G0378; J0456; J1650; J2920; J2930; J3490; J7040

== ENCOUNTER 2017-09-17 12:59 | Emergency (ER) | payer OTHER ==
[~2017-09-17] VITALS: Ht 165.1 cm; Wt 65.3 kg
[~2017-09-17 12:59] MED LIST changes: +AZITHROMYCIN250 M1 PO; +IBUPROFEN600 M1 PO; +PREDNISONE20 M1 PO; +ROBITUSSIN COU237 M1 PO
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
[2017-09-17 14:37] LABS: ABSOLUTE BASOPHIL COUNT 0 /CUMM (0.0-0.2); ABSOLUTE EOSINOPHIL COUNT 0.3 /CUMM (0.0-0.7); ABSOLUTE GRANULOCYTE CT 4.1 /CUMM (1.4-6.5); ABSOLUTE LYMPH COUNT 1.6 /CUMM (1.2-3.4); ABSOLUTE MONOCYTE COUNT 0.7 /CUMM (0.10-0.60); BASOPHIL % 0.3 % (0.0-2.0); EOSINOPHIL % 4.6 % (0-5); GRANULOCYTE % 60.7 % (42.2-75.2); HEMATOCRIT 42.1 % (37-47); MEAN CORPUSCULAR HGB 29.2 PG (27.0-31.0); MEAN CORPUSCULAR HGB CONC 33.3 G/DL (33.0-37.0); MEAN CORPUSCULAR VOLUME 87.8 FL (81.0-99.0); MEAN PLATELET VOLUME 8.3 FL (7.4-10.4); PLATELET COUNT 363 /CUMM (130-400); RBC DISTRIBUTION WIDTH 13.9 % (11.5-14.5); RED BLOOD CELL CT 4.79 /CUMM (4.20-5.40); WHITE BLOOD CELL COUNT 6.8 /CUMM (4.8-10.8)
--- NOTE | 2017-09-17 15:17 | CT SCAN REPORT ---
EXAMINATION: CT HEAD WITHOUT CONTRAST CLINICAL INFORMATION: Seizure versus syncope. Unknown head strike. COMPARISON: CT scan of the head dated 06/13/2017. TECHNIQUE: Contiguous axial imaging was performed from the skull base to vertex without intravenous administration of contrast. DLP: 620.91 mGy-cm FINDINGS: There is no evidence of acute intracranial hemorrhage or territorial infarction. No abnormal mass effect or midline shift is seen. Padgett to white matter differentiation is well preserved. No extra-axial fluid collections are identified. The ventricles are normal in size. There is a small lacunar infarction in the left caudate and left cerebellum, unchanged. The osseous structures and soft tissues are normal. There is partial opacification of several of the ethmoid air cells and mucosal thickening is seen in the right sphenoid sinus. The mastoid air cells and remainder of the visualized portions of the paranasal sinuses are well aerated. IMPRESSION: 1. No acute intracranial pathology. 2. 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 3. Ethmoid sinus and right sphenoid sinus disease.
--- NOTE | 2017-09-17 15:32 | CT SCAN REPORT ---
EXAMINATION: CT ABDOMEN AND PELVIS WITHOUT CONTRAST CLINICAL INFORMATION: Abdominal distention. Recent fall. Right pelvic and hip pain. Seizure versus syncope. COMPARISON: CT scan of the abdomen and pelvis dated 09/12/2017, 06/13/2017 and 07/11/2012. TECHNIQUE: Multidetector volumetric imaging was performed from the superior aspect of the liver through the pubic symphysis. Sagittal and coronal reformatted images were obtained on the technologist workstation. DLP: 314.62 mGy-cm. FINDINGS: LUNG BASES: Dependent atelectasis is seen in the lung bases bilaterally. LIVER, GALLBLADDER, AND BILIARY TREE: The liver is normal in size, shape, and attenuation. No significant change in subcapsular 0.5 cm segment IVb (series 2, image 19) mass or in the 0.9 x 0.5 cm segment 1 mass (series 2, image 21) dating back to 06/13/2017, consistent with a benign etiology, such as cysts. No biliary ductal dilatation is present. The gallbladder is unremarkable with no evidence of radiopaque gallstones, gallbladder wall thickening, or obvious pericholecystic inflammatory changes. PANCREAS: Unremarkable on noncontrast imaging. SPLEEN, ADRENAL GLANDS: Unremarkable on noncontrast imaging. KIDNEYS AND URETERS: The kidneys are normal in size, shape, and attenuation. No hydronephrosis, hydroureter, or calculi seen. No perinephric stranding. There is a 0.8 cm low-attenuation mass in the lower pole of the right kidney, unchanged from prior studies, likely a small cyst. BLADDER: Unremarkable. PELVIC VISCERA: Small amount of gas is seen in the vagina, a nonspecific finding possibly due to recent manipulation. No surrounding inflammatory changes seen to suspect a fistulous connection to bowel. GASTROINTESTINAL TRACT: The small and large bowel are unremarkable. The appendix is unremarkable. ABDOMINAL WALL: No significant hernia is appreciated. LYMPH NODES, VASCULAR: Unremarkable. OSSEOUS STRUCTURES: Diffuse osteopenia. Mild superior endplate compression deformities of the T10 and T11 vertebral bodies are seen, unchanged from 09/12/2017. IMPRESSION: 1. No acute intra-abdominal or pelvic findings. 2. Incidental findings of stable subcentimeter sized low-attenuation masses in the liver and in the lower pole of the right kidney. These may represent small cysts. 3. Diffuse osteopenia with mild superior endplate compression deformities of T10 and T11, unchanged.
[2017-09-17] MEDS ORDERED: TYLENOL WITH C1 EACH PO (16:09)
[2017-09-17] MEDS ORDERED: MOBIC15 M1 PO (16:09)
[2017-09-17 16:21] VITALS: BP 98/55
== END 2017-09-17 16:40 ==
LOC: ERH 12:59
PROVIDERS: Physician Assistant
DX: M54.10 Radiculopathy, site unspecified (principal); R55 Syncope and collapse; R10.31 Right lower quadrant pain
CPT/HCPCS: 74176; 80307; 93005; 93010; 96374; J0131

== ENCOUNTER 2017-10-25 20:05 | Emergency (ER) | payer OTHER ==
[~2017-10-25] VITALS: Ht 167.6 cm; Wt 81.6 kg
[~2017-10-25 20:05] MED LIST changes: +DICYCLOMINE HCL10 M1 PO; +KEPPRA500 M1 PO; +MOBIC15 M1 PO; +ONDANSETRON ODT8 M1 SL; +PANTOPRAZOLE SO40 M1 PO; +TYLENOL WITH C1 EACH PO
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
[2017-10-25 21:47] LABS: ABSOLUTE BASOPHIL COUNT 0 /CUMM (0.0-0.2); ABSOLUTE EOSINOPHIL COUNT 0.3 /CUMM (0.0-0.7); ABSOLUTE GRANULOCYTE CT 5.2 /CUMM (1.4-6.5); ABSOLUTE LYMPH COUNT 1.7 /CUMM (1.2-3.4); ABSOLUTE MONOCYTE COUNT 0.6 /CUMM (0.10-0.60); BASOPHIL % 0.3 % (0.0-2.0); EOSINOPHIL % 3.8 % (0-5); GRANULOCYTE % 66.3 % (42.2-75.2); HEMATOCRIT 44.3 % (37-47); MEAN CORPUSCULAR HGB 29.2 PG (27.0-31.0); MEAN CORPUSCULAR HGB CONC 33.5 G/DL (33.0-37.0); MEAN CORPUSCULAR VOLUME 87.2 FL (81.0-99.0); MEAN PLATELET VOLUME 8.7 FL (7.4-10.4); PLATELET COUNT 312 /CUMM (130-400); RBC DISTRIBUTION WIDTH 13.8 % (11.5-14.5); RED BLOOD CELL CT 5.08 /CUMM (4.20-5.40); WHITE BLOOD CELL COUNT 7.9 /CUMM (4.8-10.8)
--- NOTE | 2017-10-25 22:17 | CT SCAN REPORT ---
CT HEAD WO IV CONTRAST CLINICAL INFORMATION: Reason for Study:
Presumptive Dx: SEIZURE
Signs Symptoms: HEAD TRAUMA
COMPARISON: No prior CT scan available for comparison. TECHNIQUE: Department standard protocol. DLP: 621 mGy-cm FINDINGS: CEREBRAL HEMISPHERES: There is no evidence of intra-axial or extra-axial mass, hemorrhage or acute infarct. BRAIN PARENCHYMA: Normal machado-white matter differentiation. SUBDURAL SPACE: No bleed. BASAL GANGLIA AND PINEAL GLAND: Unremarkable VENTRICLES: Symmetric and normal in size. CEREBELLUM AND BRAINSTEM: No space-occupying mass, hemorrhage or acute infarct. CEREBELLOPONTINE ANGLES: No lesion found. ORBITS: No intraorbital mass. VESSELS: Unremarkable SKULL BASE: Unremarkable INCLUDED SINUSES AT SKULL BASE: Partial opacification of the ethmoidal air cells at skull base. SKULL AND SKIN: No fracture or bone lesion found. IMPRESSION: 1. No CT evidence of intracranial space-occupying mass, bleed or infarct. 2. Partial opacification of ethmoidal air cells.
--- NOTE | 2017-10-25 22:27 | CT SCAN REPORT ---
EXAMINATION: CT CERVICAL SPINE WITHOUT CONTRAST CLINICAL INFORMATION: Seizure trauma COMPARISON: None TECHNIQUE: Computed axial with reformatted sagittal and coronal images acquired departmental standard protocol noncontrast study. DLP: 306 mGy-cm FINDINGS: Cervical vertebrae identified maintaining the proper alignments. There is mild partial compression of the superior endplate of T2 indeterminant age. Visualized structures skull base are normal. SPINAL LEVELS: C2-C3: No fracture or dislocation. No central or foraminal stenosis. C3-C4: No fracture or dislocation. No central or foraminal stenosis. C4-C5: No fracture or dislocation. No central or foraminal stenosis. C5-C6: No fracture or dislocation. No central or foraminal stenosis. C6-C7: No fracture or dislocation. No central or foraminal stenosis. C7-T1: No fracture or dislocation. No central or foraminal stenosis. IMPRESSION: 1. No CT evidence of cervical spine fracture or injury. 2. There is partial compression fracture of the superior endplate of T2 indeterminant age. MRI could be helpful to assess the age of this fracture if indicated.
[2017-10-26 06:53] VITALS: BP 100/55
== END 2017-10-26 07:16 ==
LOC: ERH 20:05
PROVIDERS: Emergency Medicine
DX: R56.9 Unspecified convulsions (principal)
CPT/HCPCS: 80307; 93005; 93010; 96374; 99291; G0480

== ENCOUNTER 2017-11-24 14:47 | Emergency (ER) | payer OTHER ==
[~2017-11-24] VITALS: Ht 165.1 cm; Wt 63.5 kg
--- NOTE | 2017-11-24 15:49 | RADIOLOGY REPORT ---
EXAMINATION: XR CHEST CLINICAL INFORMATION: Chest pain radiating to left arm. Presumptive diagnosis of pneumonia, CHF. COMPARISON: Several prior chest x-rays, most recent of which is dated 10/24/2017. TECHNIQUE: 2 views of the chest were obtained. FINDINGS: The cardiomediastinal silhouette is within normal limits in size. Mild tortuosity of the aorta is seen. Low lung volumes are seen with resultant crowding of bronchovascular lung markings and apparent thickening of the central airways. No focal consolidation, effusion or pneumothorax is seen. Minimal convex right thoracolumbar curvature is seen, possibly positional. IMPRESSION: Low lung volumes. No evidence of pneumonia or CHF.
[2017-11-24 16:05] LABS: ABSOLUTE BASOPHIL COUNT 0 /CUMM (0.0-0.2); ABSOLUTE EOSINOPHIL COUNT 0.3 /CUMM (0.0-0.7); ABSOLUTE GRANULOCYTE CT 3.4 /CUMM (1.4-6.5); ABSOLUTE LYMPH COUNT 1.6 /CUMM (1.2-3.4); ABSOLUTE MONOCYTE COUNT 0.5 /CUMM (0.10-0.60); BASOPHIL % 0.7 % (0.0-2.0); EOSINOPHIL % 5.6 % (0-5); GRANULOCYTE % 57.8 % (42.2-75.2); MEAN CORPUSCULAR HGB 30.1 PG (27.0-31.0); MEAN CORPUSCULAR HGB CONC 34.3 G/DL (33.0-37.0); MEAN CORPUSCULAR VOLUME 87.5 FL (81.0-99.0); MEAN PLATELET VOLUME 8.7 FL (7.4-10.4); PLATELET COUNT 357 /CUMM (130-400); RED BLOOD CELL CT 4.57 /CUMM (4.20-5.40); WHITE BLOOD CELL COUNT 5.8 /CUMM (4.8-10.8)
[2017-11-24 16:58] VITALS: BP 121/59
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
[2017-11-24] MEDS ORDERED: PREDNISONE50 M1 PO (17:41)
[2017-11-24] MEDS ORDERED: CHERATUSSIN AC118 M1 PO (17:41)
[2017-11-24] MEDS ORDERED: ZITHROMAX250 M2 PO (17:41)
== END 2017-11-24 17:59 ==
LOC: ERH 14:47
PROVIDERS: Physician Assistant Medical
DX: J44.1 Chronic obstructive pulmonary disease with (acute) exacerbation (principal); F17.210 Nicotine dependence, cigarettes, uncomplicated; R07.9 Chest pain, unspecified; J45.909 Unspecified asthma, uncomplicated; F41.9 Anxiety disorder, unspecified
CPT/HCPCS: 1263; 1395; 71046; 93005; 93010